=== PATIENT | female | born 1965 | race African-American/Black ===

== ENCOUNTER 2019-03-12 16:09 | Emergency (ER) | payer MEDICARE, MEDICAID ==
[~2019-03-12] VITALS: Ht 165.1 cm; Wt 95.0 kg
[~2019-03-12 16:09] MED LIST: CLOB20TA; KEPP500; LAM2
[2019-03-12] MEDS ORDERED: SODIUM CHLORIDE 0.9% 1,000 ML IV ONE (16:35)
[2019-03-12] MEDS ORDERED: LORAZEPAM 2MG/ML CPJ IV ONE (16:45)
[2019-03-12 17:23] LABS: BASOPHILS % 0.6 % (0.0-2.0); EOSINOPHILS % 2.6 % (0.0-5.0); HEMATOCRIT. 37.9 % (36.0-48.0); HEMOGLOBIN. 12.7 g/dL (12.0-16.0); LYMPHOCYTES % 27.5 % (20.0-50.0); MEAN CORPUSCULAR HEMOGLOBIN 31.1 pg (28.0-32.0); MEAN CORPUSCULAR VOLUME 92.9 fL (81.0-99.0); MEAN PLATELET VOLUME 10.4 fl (7.4-10.4); MONOCYTES % 7.1 % (2.0-8.0); NEUTROPHILS % 62.2 % (40.0-76.0); PLATELET 229 x1000/uL (130-400); RED BLOOD CELL COUNT 4.08 mill/uL (4.2-5.4); RED CELL DISTRIBUTION WIDTH 14.1 % (11.6-14.6)
[2019-03-12 17:28] LABS: CHLORIDE 111 mEq/L (98-107)
[2019-03-12 18:40] LABS: PLATELET ESTIMATE NORMAL
[2019-03-12 18:55] VITALS: BP 117/91
== END 2019-03-12 19:00 | disposition home or self-care (01) ==
LOC: ER 16:09
DX: G40.909 Epilepsy, unspecified, not intractable, without status epilepticus (principal); Z79.899 Other long term (current) drug therapy
CPT/HCPCS: 36415; 80053; 85025; 96374; 99283; J2060; J7030

== ENCOUNTER 2019-05-21 02:33 | Inpatient (IN) | payer MEDICARE, MEDICAID ==
[2019-05-21] VITALS (22 sets, daily range): BP systolic 127–153; BP diastolic 76–95
[~2019-05-21] VITALS: Ht 172.7 cm; Wt 107.5 kg
[2019-05-21] MEDS ORDERED: SODIUM CHLORIDE 0.9% 1,000 ML IV ONE (04:05)
[2019-05-21] MEDS ORDERED: LORAZEPAM 2MG/ML CPJ ONE ×2 (04:10→16:01)
[2019-05-21 04:22] LABS: BASOPHILS % 0.6 % (0.0-2.0); CHLORIDE 106 mEq/L (98-107); EOSINOPHILS % 0.4 % (0.0-5.0); HEMATOCRIT. 39.5 % (36.0-48.0); HEMOGLOBIN. 13.3 g/dL (12.0-16.0); MEAN CORPUSCULAR HEMOGLOBIN 31.1 pg (28.0-32.0); MEAN CORPUSCULAR VOLUME 91.9 fL (81.0-99.0); PLATELET 197 x1000/uL (130-400); RED CELL DISTRIBUTION WIDTH 14.1 % (11.6-14.6)
[2019-05-21 04:28] LABS: ETHANOL BLOOD < 10 mg/dL
[2019-05-21] MEDS ORDERED: LEVETIRACETAM 1000MG/100ML 100 ML IV ONE (04:30)
[2019-05-21] MEDS ORDERED: LAMO100T65 PO (04:56)
[2019-05-21] MEDS ORDERED: BRIV100T PO (04:56)
[2019-05-21 06:51] LABS: CLARITY URINE CLEAR (CLEAR); COLOR URINE YELLOW (YELLOW); KETONES URINE TRACE (NEGATIVE); LEUKOCYTE ESTERASE URINE NEGATIVE (NEGATIVE); NITRITE URINE NEGATIVE (NEGATIVE); OCCULT BLOOD URINE TRACE (NEGATIVE); PH URINE 5.5 (4.5-8.0); PROTEIN URINE NEGATIVE (NEGATIVE); SPECIFIC GRAVITY URINE 1.023 (1.005-1.030); UROBILINOGEN URINE 0.2 E.U./dL (0.2-1.0)
[2019-05-21 07:12] LABS: *AMPHETAMINES SCREEN URINE NEGATIVE (NEGATIVE); *BARBITURATES SCREEN URINE NEGATIVE (NEGATIVE)
[2019-05-21 07:13] LABS: *BENZODIAZEPINES SCREEN URINE PRESUMTIVE POSITIVE (NEGATIVE); *COCAINE SCREEN URINE NEGATIVE (NEGATIVE); CANNABINOID URINE SCREEN NEGATIVE (NEGATIVE); METHADONE URINE SCREEN NEGATIVE (NEGATIVE); OPIATES URINE SCREEN NEGATIVE (NEGATIVE); PHENCYCLIDINE URINE SCREEN NEGATIVE (NEGATIVE)
[2019-05-21] MEDS ORDERED: LORAZEPAM 2MG/ML CPJ IV ONE ×3 (10:30→16:00)
[2019-05-21] MEDS ORDERED: ONDANSETRON HCL 4MG/2ML INJ IV PRN (11:30)
[2019-05-21] MEDS ORDERED: NA PHOS,M-B/NA PHOS,DI-BA ENEMA 118ML PR PRN (11:30)
[2019-05-21] MEDS ORDERED: HYDROCODONE/ACETAMINOPHEN 5/325MG TABLET PO PRN (11:30)
[2019-05-21] MEDS ORDERED: GUAIFENESIN 200MG/10ML SUGAR FREE UDC PO PRN (11:30)
[2019-05-21] MEDS ORDERED: MAGNESIUM/ALUMINUM HYDROXIDE/SIMETHICONE 30ML UDC PO PRN (11:30)
[2019-05-21] MEDS ORDERED: LORAZEPAM 0.5MG TABLET PO PRN (11:30)
[2019-05-21] MEDS ORDERED: CLONIDINE 0.1MG TABLET PO PRN (11:30)
[2019-05-21] MEDS ORDERED: DOCUSATE SODIUM 100MG CAPSULE PO PRN (11:30)
[2019-05-21] MEDS ORDERED: ACETAMINOPHEN 650MG SUPP PR PRN (11:30)
[2019-05-21] MEDS: DEXT 5%/0.45% NACL 1000ML 1,000 ML IV SCH (12:03)
[2019-05-21 12:18] LABS: BG CARBOXYHEMOGLOBIN 0.3 % (0.5-1.5); BG DEOXYHEMOGLOBIN 0.7 % (0.0-5.0); BG FRACTION INSPIRED OXYGEN 99; BG HCO3 ACT 17.7 mmol/L (22.0-26.0); BG METHEMOGLOBIN 0.2 % (0.0-1.5); BG OXYGEN SATURATION 99.3 % (92.0-98.5); BG OXYHEMOGLOBIN 98.8 % (94.0-97.0); BG PCO2 37.2 mmHg (35.0-45.0); BG PH 7.296 (7.350-7.450); BG PO2 291.8 mmHg (75.0-100.0); BG SAMPLE SITE RIGHT RADIAL; BG TOTAL HEMOGLOBIN 12.7 g/dL (12.0-18.0); BG VENT MODE MASK - NRB
[2019-05-21 12:27] LABS: INR 1.1; PROTHROMBIN TIME 11.1 sec (9.6-11.0)
[2019-05-21] MEDS ORDERED: PHENYTOIN SODIUM 100MG/2ML VIAL IV NR (15:15)
[2019-05-21] MEDS ORDERED: LEVETIRACETAM 500MG PREMIX 100 ML IV NR (15:15)
[2019-05-21] MEDS ORDERED: LAMOTRIGINE 100MG TABLET PO SCH (15:15)
[2019-05-21] MEDS ORDERED: ETOMIDATE 2MG/ML 10ML VIAL IV ONE ×2 (16:00→16:03)
[2019-05-21] MEDS ORDERED: MIDAZOLAM HCL 50 MG in DEXTROSE 5% WATER 40 ML IV ONE ×2 (16:00→16:15)
[2019-05-21] MEDS ORDERED: MIDAZOLAM HCL 2 MG/2 ML VIAL IV ONE (16:00)
[2019-05-21] MEDS ORDERED: VECURONIUM BROMIDE 10 MG/VIAL IV ONE ×2 (16:00→16:03)
[2019-05-21] MEDS ORDERED: SODIUM CHLORIDE 0.9% 10ML VIAL ONE (16:03)
[2019-05-21 17:18] LABS: BG BASE EXCESS -3.9 mmol/L (-2.0-2.0); BG CARBOXYHEMOGLOBIN 0.3 % (0.5-1.5); BG DEOXYHEMOGLOBIN 0.7 % (0.0-5.0); BG FRACTION INSPIRED OXYGEN 100; BG HCO3 ACT 22.1 mmol/L (22.0-26.0); BG METHEMOGLOBIN 0.4 % (0.0-1.5); BG OXYGEN SATURATION 99.3 % (92.0-98.5); BG OXYHEMOGLOBIN 98.6 % (94.0-97.0); BG PCO2 43.9 mmHg (35.0-45.0); BG PO2 245.9 mmHg (75.0-100.0); BG SAMPLE SITE RIGHT BRACHIAL; BG TIDAL VOLUME(mL) 500 mL; BG TOTAL HEMOGLOBIN 13.2 g/dL (12.0-18.0); BG VENT MODE VENT - A/C; BG VENT RATE 12 set
[2019-05-21] MEDS ORDERED: MIDAZOLAM HCL 100 MG in DEXT 5% WATER 80 ML IV PRN (18:15)
[2019-05-21] MEDS: PROPOFOL 10MG/ML 100ML 100 ML IV PRN ×2 (18:33→21:49)
[2019-05-21 18:39] LABS: CREATINE KINASE 226 IU/L (26-192)
[2019-05-21 18:41] LABS: CREATINE KINASE MB FRACTION 1.1 ng/mL (0.5-3.6)
[2019-05-21] MEDS ORDERED: PANTOPRAZOLE SODIUM 40 MG/VIAL IV NR (20:30)
[2019-05-21] MEDS: PIPERACILLIN/TAZOBACTAM 3.375 G in DEXT 5% WATER 100 ML IV SCH (20:35)
[2019-05-21] MEDS: LAMOTRIGINE 100MG TABLET PO SCH (20:35)
[2019-05-21] MEDS ORDERED: LEVETIRACETAM 500 MG in SODIUM CHLORIDE 0.9% 100 ML IV SCH (21:00)
[2019-05-21 21:30] LABS: BG BASE EXCESS -1.4 mmol/L (-2.0-2.0); BG CARBOXYHEMOGLOBIN 0.1 % (0.5-1.5); BG DEOXYHEMOGLOBIN 1.1 % (0.0-5.0); BG FRACTION INSPIRED OXYGEN 50; BG METHEMOGLOBIN 0.5 % (0.0-1.5); BG OXYGEN SATURATION 98.9 % (92.0-98.5); BG OXYHEMOGLOBIN 98.3 % (94.0-97.0); BG PCO2 25.2 mmHg (35.0-45.0); BG PH 7.518 (7.350-7.450); BG SAMPLE SITE RIGHT RADIAL; BG TIDAL VOLUME(mL) 500 mL; BG VENT MODE VENT - A/C; BG VENT RATE 16 set
[2019-05-21] MEDS: LEVETIRACETAM 1,000 MG in SODIUM CHLORIDE 0.9% 100 ML IV SCH (21:50)
[2019-05-21] MEDS: PHENYTOIN SODIUM 100MG/2ML VIAL IV SCH (21:54)
[2019-05-21 23:32] LABS: CREATINE KINASE 229 IU/L (26-192)
[2019-05-21 23:33] LABS: CREATINE KINASE MB FRACTION 1.3 ng/mL (0.5-3.6)
[2019-05-22] VITALS (96 sets, daily range): BP systolic 96–183; BP diastolic 33–93
[2019-05-22] MEDS: PIPERACILLIN/TAZOBACTAM 3.375 G in DEXT 5% WATER 100 ML IV SCH ×4 (02:34→21:26)
[2019-05-22] MEDS: DEXT 5%/0.45% NACL 1000ML 1,000 ML IV SCH ×2 (02:49→14:46)
[2019-05-22] MEDS: PHENYTOIN SODIUM 100MG/2ML VIAL IV SCH ×2 (05:02→14:45)
[2019-05-22 05:21] LABS: BASOPHILS % 0.6 % (0.0-2.0); EOSINOPHILS % 1.4 % (0.0-5.0); HEMOGLOBIN. 12.2 g/dL (12.0-16.0); LYMPHOCYTES % 32.7 % (20.0-50.0); MEAN CORPUSCULAR HEMOGLOBIN 31.2 pg (28.0-32.0); MEAN CORPUSCULAR VOLUME 91.7 fL (81.0-99.0); MEAN PLATELET VOLUME 10.3 fl (7.4-10.4); MONOCYTES % 8.6 % (2.0-8.0); NEUTROPHILS % 56.7 % (40.0-76.0); PLATELET 167 x1000/uL (130-400); RED BLOOD CELL COUNT 3.93 mill/uL (4.2-5.4); RED CELL DISTRIBUTION WIDTH 13.8 % (11.6-14.6)
[2019-05-22 05:35] LABS: CHLORIDE 109 mEq/L (98-107)
[2019-05-22 05:43] LABS: LDL CHOLESTEROL 91 mg/dL (5-100)
[2019-05-22 05:45] LABS: HDL CHOLESTEROL 47 mg/dL (40-59); T4 FREE 1.26 ng/dL (0.76-1.46)
[2019-05-22] MEDS: PROPOFOL 10MG/ML 100ML 100 ML IV PRN ×3 (06:17→15:05)
[2019-05-22] MEDS ORDERED: LIDOCAINE HCL 1% 20ML VIAL (Pyxis) INJ ONE (08:01)
[2019-05-22] MEDS: LAMOTRIGINE 100MG TABLET PO SCH ×2 (08:49→18:54)
[2019-05-22] MEDS: PANTOPRAZOLE SODIUM 40 MG/VIAL IV SCH (08:49)
[2019-05-22] MEDS: LEVETIRACETAM 1,000 MG in SODIUM CHLORIDE 0.9% 100 ML IV SCH (08:49)
[2019-05-22] MEDS: IPRATROPIUM/ALBUTEROL 0.5-3(2.5)MG/3ML NEB NEB PRN (09:05)
[2019-05-22] MEDS: LORAZEPAM 2MG/ML CPJ IV PRN (15:04)
[2019-05-22] MEDS ORDERED: PHENYTOIN SODIUM 500 MG in SODIUM CHLORIDE 0.9% 50 ML IV SCH (20:00)
[2019-05-22] MEDS: LEVETIRACETAM 1,500 MG in SODIUM CHLORIDE 0.9% 100 ML IV SCH (21:26)
[2019-05-22] MEDS ORDERED: POTASSIUM CHLORIDE 20MEQ/PACKET PO NR (22:00)
[2019-05-22] MEDS: [UNRECOGNIZED DRUG - REMARK] PO SCH (22:12)
[2019-05-22] MEDS: [UNRECOGNIZED DRUG - REMARK] PO SCH (22:12)
[2019-05-23] VITALS (54 sets, daily range): BP systolic 78–151; BP diastolic 39–82
[2019-05-23] MEDS: PROPOFOL 10MG/ML 100ML 100 ML IV PRN ×4 (00:57→23:42)
[2019-05-23] MEDS: DEXT 5%/0.45% NACL 1000ML 1,000 ML IV SCH ×2 (03:39→16:37)
[2019-05-23] MEDS: PIPERACILLIN/TAZOBACTAM 3.375 G in DEXT 5% WATER 100 ML IV SCH ×4 (03:39→20:22)
[2019-05-23 05:21] LABS: BASOPHILS % 0.4 % (0.0-2.0); EOSINOPHILS % 4.2 % (0.0-5.0); HEMATOCRIT. 35.7 % (36.0-48.0); HEMOGLOBIN. 12.4 g/dL (12.0-16.0); LYMPHOCYTES % 31.1 % (20.0-50.0); MEAN CORPUSCULAR HEMOGLOBIN 31.8 pg (28.0-32.0); MEAN CORPUSCULAR VOLUME 91.8 fL (81.0-99.0); MEAN PLATELET VOLUME 10.2 fl (7.4-10.4); MONOCYTES % 8.2 % (2.0-8.0); NEUTROPHILS % 56.1 % (40.0-76.0); PLATELET 149 x1000/uL (130-400); RED BLOOD CELL COUNT 3.89 mill/uL (4.2-5.4); RED CELL DISTRIBUTION WIDTH 13.6 % (11.6-14.6)
[2019-05-23 05:23] LABS: CHLORIDE 108 mEq/L (98-107)
[2019-05-23] MEDS: PANTOPRAZOLE SODIUM 40 MG/VIAL IV SCH (08:00)
[2019-05-23] MEDS: [UNRECOGNIZED DRUG - REMARK] PO SCH ×2 (08:01→21:43)
[2019-05-23] MEDS: [UNRECOGNIZED DRUG - REMARK] PO SCH ×2 (08:01→21:42)
[2019-05-23] MEDS: PHENYTOIN SODIUM 100MG/2ML VIAL IV SCH ×2 (08:01→16:37)
[2019-05-23] MEDS: LAMOTRIGINE 100MG TABLET PO SCH ×2 (08:02→16:38)
[2019-05-23] MEDS: IPRATROPIUM/ALBUTEROL 0.5-3(2.5)MG/3ML NEB NEB PRN (08:33)
[2019-05-23] MEDS: LEVETIRACETAM 1,500 MG in SODIUM CHLORIDE 0.9% 100 ML IV SCH ×3 (09:00→21:43)
[2019-05-23 11:43] LABS: BG BASE EXCESS -0.3 mmol/L (-2.0-2.0); BG CARBOXYHEMOGLOBIN 0.3 % (0.5-1.5); BG DEOXYHEMOGLOBIN 1.1 % (0.0-5.0); BG FRACTION INSPIRED OXYGEN 40; BG HCO3 ACT 23.1 mmol/L (22.0-26.0); BG METHEMOGLOBIN 0.3 % (0.0-1.5); BG OXYGEN SATURATION 98.9 % (92.0-98.5); BG OXYHEMOGLOBIN 98.3 % (94.0-97.0); BG PO2 152.5 mmHg (75.0-100.0); BG SAMPLE SITE RIGHT RADIAL; BG TIDAL VOLUME(mL) 400 mL; BG TOTAL HEMOGLOBIN 13.2 g/dL (12.0-18.0); BG VENT MODE VENT - A/C; BG VENT RATE 16 set
[2019-05-23] MEDS ORDERED: POTASSIUM CHLORIDE INJ 40 MEQ in DEXT 5% WATER 250 ML IV NR (16:00)
[2019-05-23] MEDS ORDERED: NOREPINEPHRINE 4 MG in DEXT 5% WATER 246 ML IV PRN (18:00)
[2019-05-24] VITALS (47 sets, daily range): BP systolic 90–173; BP diastolic 42–81
[2019-05-24] MEDS: PIPERACILLIN/TAZOBACTAM 3.375 G in DEXT 5% WATER 100 ML IV SCH ×4 (03:19→20:34)
[2019-05-24] MEDS: PROPOFOL 10MG/ML 100ML 100 ML IV PRN ×4 (04:57→20:21)
[2019-05-24] MEDS: DEXT 5%/0.45% NACL 1000ML 1,000 ML IV SCH ×2 (04:58→18:03)
[2019-05-24 07:18] LABS: HEMATOCRIT 33.8 % (36.0-48.0); HEMOGLOBIN 11.2 g/dL (12.0-16.0); MEAN CORPUSCULAR HEMOGLOBIN 30.7 pg (28.0-32.0); MEAN CORPUSCULAR VOLUME 92.7 fL (81.0-99.0); PLATELET 140 x1000/uL (130-400); RED BLOOD CELL COUNT 3.64 mill/uL (4.2-5.4); RED CELL DISTRIBUTION WIDTH 13.7 % (11.6-14.6)
[2019-05-24] MEDS: PHENYTOIN SODIUM 100MG/2ML VIAL IV SCH ×2 (08:49→17:57)
[2019-05-24] MEDS: [UNRECOGNIZED DRUG - REMARK] PO SCH ×2 (08:49→22:29)
[2019-05-24] MEDS: PANTOPRAZOLE SODIUM 40 MG/VIAL IV SCH (08:49)
[2019-05-24] MEDS: LAMOTRIGINE 100MG TABLET PO SCH ×2 (08:49→17:58)
[2019-05-24] MEDS: LEVETIRACETAM 1,500 MG in SODIUM CHLORIDE 0.9% 100 ML IV SCH ×2 (08:49→21:01)
[2019-05-24] MEDS: [UNRECOGNIZED DRUG - REMARK] PO SCH ×2 (08:49→22:28)
[2019-05-24 09:02] LABS: CHLORIDE 112 mEq/L (98-107)
[2019-05-24 09:33] LABS: BG BASE EXCESS -1.7 mmol/L (-2.0-2.0); BG CARBOXYHEMOGLOBIN 0.3 % (0.5-1.5); BG DEOXYHEMOGLOBIN 1.3 % (0.0-5.0); BG FRACTION INSPIRED OXYGEN 40; BG HCO3 ACT 22.4 mmol/L (22.0-26.0); BG METHEMOGLOBIN 0.3 % (0.0-1.5); BG OXYGEN SATURATION 98.7 % (92.0-98.5); BG OXYHEMOGLOBIN 98.1 % (94.0-97.0); BG PCO2 35.7 mmHg (35.0-45.0); BG PH 7.415 (7.350-7.450); BG PO2 141.7 mmHg (75.0-100.0); BG SAMPLE SITE LEFT BRACHIAL; BG TIDAL VOLUME(mL) 400 mL; BG TOTAL HEMOGLOBIN 12.6 g/dL (12.0-18.0); BG VENT MODE VENT - A/C; BG VENT RATE 16 set
[2019-05-24] MEDS ORDERED: POTASSIUM CHLORIDE 20MEQ/PACKET PO NR ×2 (10:45→14:00)
[2019-05-24] MEDS ORDERED: PHENYTOIN 100 MG/4 ML UDC NG NR ×2 (14:30→18:00)
[2019-05-24] MEDS: LAMOTRIGINE 25MG TABLET PO SCH (17:57)
[2019-05-25] VITALS (89 sets, daily range): BP systolic 61–176; BP diastolic 27–118
[2019-05-25] MEDS: PIPERACILLIN/TAZOBACTAM 3.375 G in DEXT 5% WATER 100 ML IV SCH ×4 (02:48→22:07)
[2019-05-25] MEDS: PROPOFOL 10MG/ML 100ML 100 ML IV PRN ×2 (02:50→10:16)
[2019-05-25 04:52] LABS: BASOPHILS % 0.3 % (0.0-2.0); EOSINOPHILS % 5.9 % (0.0-5.0); HEMATOCRIT. 34.7 % (36.0-48.0); HEMOGLOBIN. 11.5 g/dL (12.0-16.0); LYMPHOCYTES % 28.6 % (20.0-50.0); MEAN CORPUSCULAR HEMOGLOBIN 30.8 pg (28.0-32.0); MEAN CORPUSCULAR VOLUME 92.7 fL (81.0-99.0); MEAN PLATELET VOLUME 10.4 fl (7.4-10.4); MONOCYTES % 8.6 % (2.0-8.0); NEUTROPHILS % 56.6 % (40.0-76.0); PLATELET 152 x1000/uL (130-400); RED BLOOD CELL COUNT 3.74 mill/uL (4.2-5.4); RED CELL DISTRIBUTION WIDTH 14.1 % (11.6-14.6)
[2019-05-25 05:06] LABS: CHLORIDE 112 mEq/L (98-107)
[2019-05-25 05:12] LABS: PHOSPHORUS 3.1 mg/dL (2.5-4.9)
[2019-05-25] MEDS: [UNRECOGNIZED DRUG - REMARK] PO SCH ×2 (08:51→22:08)
[2019-05-25] MEDS: [UNRECOGNIZED DRUG - REMARK] PO SCH ×2 (08:51→22:08)
[2019-05-25] MEDS: LAMOTRIGINE 25MG TABLET PO SCH ×2 (08:51→16:41)
[2019-05-25] MEDS: PHENYTOIN SODIUM 100MG/2ML VIAL IV SCH ×2 (08:52→16:41)
[2019-05-25] MEDS: LAMOTRIGINE 100MG TABLET PO SCH ×2 (08:52→16:41)
[2019-05-25] MEDS: PANTOPRAZOLE SODIUM 40 MG/VIAL IV SCH (08:52)
[2019-05-25] MEDS: LEVETIRACETAM 1,500 MG in SODIUM CHLORIDE 0.9% 100 ML IV SCH ×2 (08:52→22:06)
[2019-05-25 09:06] LABS: BG BASE EXCESS -2.8 mmol/L (-2.0-2.0); BG CARBOXYHEMOGLOBIN 0.3 % (0.5-1.5); BG DEOXYHEMOGLOBIN 1.5 % (0.0-5.0); BG FRACTION INSPIRED OXYGEN 40; BG HCO3 ACT 21.5 mmol/L (22.0-26.0); BG METHEMOGLOBIN 0.3 % (0.0-1.5); BG OXYGEN SATURATION 98.5 % (92.0-98.5); BG OXYHEMOGLOBIN 97.9 % (94.0-97.0); BG PCO2 35.7 mmHg (35.0-45.0); BG PH 7.398 (7.350-7.450); BG PO2 138.8 mmHg (75.0-100.0); BG SAMPLE SITE RIGHT RADIAL; BG TIDAL VOLUME(mL) 400 mL; BG TOTAL HEMOGLOBIN 12.3 g/dL (12.0-18.0); BG VENT MODE VENT - A/C; BG VENT RATE 16 set
[2019-05-25] MEDS: DEXT 5%/0.45% NACL 1000ML 1,000 ML IV SCH ×2 (09:21→23:50)
[2019-05-25] MEDS ORDERED: POTASSIUM CHLORIDE 20MEQ/PACKET NG NR (11:15)
[2019-05-25] MEDS: LORAZEPAM 2MG/ML CPJ IV PRN ×2 (13:03→22:08)
[2019-05-25] MEDS: ZONISAMIDE 100MG CAPSULE PO SCH (15:50)
[2019-05-25] MEDS: DIPHENHYDRAMINE 50MG/ML VIAL IV PRN (22:07)
[2019-05-26] VITALS (64 sets, daily range): BP systolic 70–153; BP diastolic 35–88
[2019-05-26] MEDS ORDERED: PROPOFOL 10MG/ML 100ML 100 ML IV PRN
[2019-05-26] MEDS: PIPERACILLIN/TAZOBACTAM 3.375 G in DEXT 5% WATER 100 ML IV SCH ×4 (03:45→22:02)
[2019-05-26 04:52] LABS: HEMATOCRIT. 32.8 % (36.0-48.0); HEMOGLOBIN. 11.1 g/dL (12.0-16.0); MEAN CORPUSCULAR HEMOGLOBIN 31.7 pg (28.0-32.0); MEAN CORPUSCULAR VOLUME 93.5 fL (81.0-99.0); RED BLOOD CELL COUNT 3.51 mill/uL (4.2-5.4); RED CELL DISTRIBUTION WIDTH 14.4 % (11.6-14.6)
[2019-05-26 05:03] LABS: CHLORIDE 112 mEq/L (98-107)
[2019-05-26] MEDS: [UNRECOGNIZED DRUG - REMARK] PO SCH ×2 (08:48→22:03)
[2019-05-26] MEDS: [UNRECOGNIZED DRUG - REMARK] PO SCH ×2 (08:48→22:03)
[2019-05-26] MEDS: ZONISAMIDE 100MG CAPSULE PO SCH (08:50)
[2019-05-26] MEDS: PANTOPRAZOLE SODIUM 40 MG/VIAL IV SCH (08:51)
[2019-05-26] MEDS: LAMOTRIGINE 100MG TABLET PO SCH ×2 (08:51→16:42)
[2019-05-26] MEDS: LAMOTRIGINE 25MG TABLET PO SCH ×2 (08:51→16:41)
[2019-05-26] MEDS: LEVETIRACETAM 1,500 MG in SODIUM CHLORIDE 0.9% 100 ML IV SCH ×2 (08:51→22:02)
[2019-05-26] MEDS: PHENYTOIN SODIUM 100MG/2ML VIAL IV SCH ×2 (09:17→16:41)
[2019-05-26 10:58] LABS: PLATELET ESTIMATE NORMAL
[2019-05-26 10:59] LABS: MEAN PLATELET VOLUME 10.7 fl (7.4-10.4); PLATELET 161 x1000/uL (130-400)
[2019-05-26 15:33] LABS: BG BASE EXCESS -0.1 mmol/L (-2.0-2.0); BG CARBOXYHEMOGLOBIN 0.3 % (0.5-1.5); BG DEOXYHEMOGLOBIN 1.7 % (0.0-5.0); BG FRACTION INSPIRED OXYGEN 40; BG HCO3 ACT 25.3 mmol/L (22.0-26.0); BG METHEMOGLOBIN 0.2 % (0.0-1.5); BG OXYGEN SATURATION 98.3 % (92.0-98.5); BG OXYHEMOGLOBIN 97.8 % (94.0-97.0); BG PCO2 44.2 mmHg (35.0-45.0); BG PH 7.376 (7.350-7.450); BG PO2 127.2 mmHg (75.0-100.0); BG PRESSURE SUPPORT 10; BG SAMPLE SITE RIGHT RADIAL; BG TOTAL HEMOGLOBIN 12.6 g/dL (12.0-18.0); BG VENT MODE VENT - CPAP
[2019-05-26 18:18] LABS: BG BASE EXCESS -1.4 mmol/L (-2.0-2.0); BG CARBOXYHEMOGLOBIN 0.1 % (0.5-1.5); BG DEOXYHEMOGLOBIN 2.5 % (0.0-5.0); BG FRACTION INSPIRED OXYGEN 40; BG HCO3 ACT 23.7 mmol/L (22.0-26.0); BG METHEMOGLOBIN 0.3 % (0.0-1.5); BG OXYGEN SATURATION 97.5 % (92.0-98.5); BG OXYHEMOGLOBIN 97.1 % (94.0-97.0); BG PCO2 41.6 mmHg (35.0-45.0); BG PH 7.374 (7.350-7.450); BG PO2 105.2 mmHg (75.0-100.0); BG PRESSURE SUPPORT 5; BG SAMPLE SITE RIGHT RADIAL; BG VENT MODE VENT - CPAP
[2019-05-26] MEDS: DIPHENHYDRAMINE 50MG/ML VIAL IV PRN (22:03)
[2019-05-27] VITALS (73 sets, daily range): BP systolic 74–143; BP diastolic 31–91
[2019-05-27] MEDS: PIPERACILLIN/TAZOBACTAM 3.375 G in DEXT 5% WATER 100 ML IV SCH ×4 (03:59→21:59)
[2019-05-27] MEDS ORDERED: NOREPINEPHRINE 4 MG in DEXT 5% WATER 246 ML IV PRN (04:00)
[2019-05-27 05:13] LABS: BASOPHILS % 0.4 % (0.0-2.0); EOSINOPHILS % 4.7 % (0.0-5.0); HEMATOCRIT. 33.8 % (36.0-48.0); HEMOGLOBIN. 11.2 g/dL (12.0-16.0); LYMPHOCYTES % 39.1 % (20.0-50.0); MEAN CORPUSCULAR VOLUME 93.7 fL (81.0-99.0); MEAN PLATELET VOLUME 10.3 fl (7.4-10.4); NEUTROPHILS % 46.8 % (40.0-76.0); PLATELET 207 x1000/uL (130-400); RED BLOOD CELL COUNT 3.61 mill/uL (4.2-5.4); RED CELL DISTRIBUTION WIDTH 14.4 % (11.6-14.6)
[2019-05-27 05:18] LABS: CHLORIDE 111 mEq/L (98-107)
[2019-05-27] MEDS: DEXT 5%/0.45% NACL 1000ML 1,000 ML IV SCH (06:31)
[2019-05-27] MEDS: MIDAZOLAM HCL 2 MG/2 ML VIAL IV PRN ×6 (07:35→22:00)
[2019-05-27 09:00] LABS: BG BASE EXCESS -1.2 mmol/L (-2.0-2.0); BG CARBOXYHEMOGLOBIN 0.3 % (0.5-1.5); BG DEOXYHEMOGLOBIN 2.6 % (0.0-5.0); BG FRACTION INSPIRED OXYGEN 40; BG HCO3 ACT 23.8 mmol/L (22.0-26.0); BG METHEMOGLOBIN 0.1 % (0.0-1.5); BG OXYGEN SATURATION 97.4 % (92.0-98.5); BG PCO2 40.8 mmHg (35.0-45.0); BG PH 7.384 (7.350-7.450); BG PO2 103.7 mmHg (75.0-100.0); BG SAMPLE SITE RIGHT BRACHIAL; BG TIDAL VOLUME(mL) 400 mL; BG TOTAL HEMOGLOBIN 11.9 g/dL (12.0-18.0); BG VENT MODE VENT - A/C; BG VENT RATE 16 set
[2019-05-27] MEDS: LEVETIRACETAM 1,500 MG in SODIUM CHLORIDE 0.9% 100 ML IV SCH ×2 (09:02→21:58)
[2019-05-27] MEDS: PHENYTOIN SODIUM 100MG/2ML VIAL IV SCH ×2 (09:11→17:04)
[2019-05-27] MEDS: PANTOPRAZOLE SODIUM 40 MG/VIAL IV SCH (09:11)
[2019-05-27] MEDS: [UNRECOGNIZED DRUG - REMARK] PO SCH ×2 (09:11→22:04)
[2019-05-27] MEDS: [UNRECOGNIZED DRUG - REMARK] PO SCH ×2 (09:11→22:04)
[2019-05-27] MEDS: LAMOTRIGINE 100MG TABLET PO SCH ×2 (09:12→17:05)
[2019-05-27] MEDS: ZONISAMIDE 100MG CAPSULE PO SCH (09:12)
[2019-05-27] MEDS: LAMOTRIGINE 25MG TABLET PO SCH ×2 (09:12→17:05)
[2019-05-27] MEDS: DIPHENHYDRAMINE 50MG/ML VIAL IV PRN (13:25)
[2019-05-28] VITALS (49 sets, daily range): BP systolic 49–150; BP diastolic 17–99
[2019-05-28] MEDS: PIPERACILLIN/TAZOBACTAM 3.375 G in DEXT 5% WATER 100 ML IV SCH ×4 (02:34→21:24)
[2019-05-28 04:57] LABS: CHLORIDE 109 mEq/L (98-107)
[2019-05-28] MEDS: MIDAZOLAM HCL 2 MG/2 ML VIAL IV PRN ×4 (07:21→21:23)
[2019-05-28] MEDS: DIPHENHYDRAMINE 50MG/ML VIAL IV PRN ×2 (07:43→17:00)
[2019-05-28] MEDS: ZONISAMIDE 100MG CAPSULE PO SCH (09:34)
[2019-05-28] MEDS: PANTOPRAZOLE SODIUM 40 MG/VIAL IV SCH (09:34)
[2019-05-28] MEDS: LAMOTRIGINE 25MG TABLET PO SCH ×2 (09:34→17:56)
[2019-05-28] MEDS: LAMOTRIGINE 100MG TABLET PO SCH ×2 (09:34→17:56)
[2019-05-28] MEDS: PHENYTOIN SODIUM 100MG/2ML VIAL IV SCH ×2 (09:34→17:56)
[2019-05-28] MEDS: [UNRECOGNIZED DRUG - REMARK] PO SCH ×2 (09:35→21:22)
[2019-05-28] MEDS: LEVETIRACETAM 1,500 MG in SODIUM CHLORIDE 0.9% 100 ML IV SCH ×2 (09:35→21:22)
[2019-05-28] MEDS: [UNRECOGNIZED DRUG - REMARK] PO SCH ×2 (09:36→21:21)
[2019-05-28 10:18] LABS: BG BASE EXCESS 0.1 mmol/L (-2.0-2.0); BG CARBOXYHEMOGLOBIN 0.3 % (0.5-1.5); BG DEOXYHEMOGLOBIN 2.4 % (0.0-5.0); BG FRACTION INSPIRED OXYGEN 40; BG HCO3 ACT 24.7 mmol/L (22.0-26.0); BG METHEMOGLOBIN 0.1 % (0.0-1.5); BG OXYGEN SATURATION 97.6 % (92.0-98.5); BG OXYHEMOGLOBIN 97.2 % (94.0-97.0); BG PCO2 39.6 mmHg (35.0-45.0); BG PH 7.412 (7.350-7.450); BG PO2 104.4 mmHg (75.0-100.0); BG SAMPLE SITE RIGHT RADIAL; BG TIDAL VOLUME(mL) 400 mL; BG TOTAL HEMOGLOBIN 10.7 g/dL (12.0-18.0); BG VENT MODE VENT - A/C; BG VENT RATE 16 set
[2019-05-28] MEDS: DEXT 5%/0.45% NACL 1000ML 1,000 ML IV SCH ×2 (10:57→11:58)
[2019-05-28] MEDS ORDERED: MORPHINE SULFATE 2 MG/ML CPJ (NOT FOR IM USE) IV NR (11:45)
[2019-05-28 11:58] LABS: BASOPHILS % 0.6 % (0.0-2.0); EOSINOPHILS % 6.2 % (0.0-5.0); HEMATOCRIT. 31.8 % (36.0-48.0); HEMOGLOBIN. 10.7 g/dL (12.0-16.0); LYMPHOCYTES % 15.8 % (20.0-50.0); MEAN CORPUSCULAR HEMOGLOBIN 31.2 pg (28.0-32.0); MEAN CORPUSCULAR VOLUME 92.9 fL (81.0-99.0); MEAN PLATELET VOLUME 10.1 fl (7.4-10.4); MONOCYTES % 8.2 % (2.0-8.0); NEUTROPHILS % 69.2 % (40.0-76.0); PLATELET 175 x1000/uL (130-400); RED BLOOD CELL COUNT 3.42 mill/uL (4.2-5.4); RED CELL DISTRIBUTION WIDTH 13.7 % (11.6-14.6)
[2019-05-28] MEDS: ACETAMINOPHEN 325MG TABLET PO PRN (21:23)
[2019-05-29] VITALS (62 sets, daily range): BP systolic 77–178; BP diastolic 32–106
[2019-05-29 06:26] LABS: CHLORIDE 109 mEq/L (98-107)
[2019-05-29 06:41] LABS: BASOPHILS % 0.4 % (0.0-2.0); EOSINOPHILS % 5.5 % (0.0-5.0); HEMATOCRIT. 32.2 % (36.0-48.0); HEMOGLOBIN. 10.8 g/dL (12.0-16.0); LYMPHOCYTES % 24.6 % (20.0-50.0); MEAN CORPUSCULAR HEMOGLOBIN 30.9 pg (28.0-32.0); MEAN CORPUSCULAR VOLUME 92.4 fL (81.0-99.0); MEAN PLATELET VOLUME 10.6 fl (7.4-10.4); MONOCYTES % 10.1 % (2.0-8.0); NEUTROPHILS % 59.4 % (40.0-76.0); PLATELET 173 x1000/uL (130-400); RED BLOOD CELL COUNT 3.48 mill/uL (4.2-5.4); RED CELL DISTRIBUTION WIDTH 13.7 % (11.6-14.6)
[2019-05-29] MEDS: LEVETIRACETAM 1,500 MG in SODIUM CHLORIDE 0.9% 100 ML IV SCH ×2 (09:46→21:56)
[2019-05-29] MEDS: ZONISAMIDE 100MG CAPSULE PO SCH (09:46)
[2019-05-29] MEDS: [UNRECOGNIZED DRUG - REMARK] PO SCH ×2 (09:46→21:56)
[2019-05-29] MEDS: PHENYTOIN SODIUM 100MG/2ML VIAL IV SCH ×2 (09:46→17:09)
[2019-05-29] MEDS: [UNRECOGNIZED DRUG - REMARK] PO SCH ×2 (09:46→21:56)
[2019-05-29] MEDS: PANTOPRAZOLE SODIUM 40 MG/VIAL IV SCH (09:46)
[2019-05-29] MEDS: LAMOTRIGINE 25MG TABLET PO SCH ×2 (09:46→17:08)
[2019-05-29] MEDS: LAMOTRIGINE 100MG TABLET PO SCH ×2 (09:47→17:09)
[2019-05-29] MEDS: DEXT 5%/0.45% NACL 1000ML 1,000 ML IV SCH (11:43)
[2019-05-29] MEDS: IPRATROPIUM/ALBUTEROL 0.5-3(2.5)MG/3ML NEB NEB PRN (16:18)
[2019-05-29 16:31] LABS: BG BASE EXCESS -1.6 mmol/L (-2.0-2.0); BG CARBOXYHEMOGLOBIN 0.1 % (0.5-1.5); BG DEOXYHEMOGLOBIN 3.1 % (0.0-5.0); BG FRACTION INSPIRED OXYGEN 40; BG HCO3 ACT 23.7 mmol/L (22.0-26.0); BG METHEMOGLOBIN 0.2 % (0.0-1.5); BG OXYGEN SATURATION 96.9 % (92.0-98.5); BG OXYHEMOGLOBIN 96.6 % (94.0-97.0); BG PCO2 42.3 mmHg (35.0-45.0); BG PH 7.367 (7.350-7.450); BG PO2 94.2 mmHg (75.0-100.0); BG PRESSURE SUPPORT 10; BG SAMPLE SITE RIGHT RADIAL; BG VENT MODE VENT - CPAP
[2019-05-29] MEDS ORDERED: METHYLPREDNISOLONE SOD SUCC 40 MG/ML VIAL IV NR (18:59)
[2019-05-29] MEDS ORDERED: RACEPINEPHRINE 2.25% 0.5ML NEB VIAL HHN NR (19:00)
[2019-05-29 21:47] LABS: BG BASE EXCESS -4.2 mmol/L (-2.0-2.0); BG CARBOXYHEMOGLOBIN 0.1 % (0.5-1.5); BG DEOXYHEMOGLOBIN 1.3 % (0.0-5.0); BG FRACTION INSPIRED OXYGEN 98; BG HCO3 ACT 21.1 mmol/L (22.0-26.0); BG METHEMOGLOBIN 0.4 % (0.0-1.5); BG OXYGEN SATURATION 98.7 % (92.0-98.5); BG OXYHEMOGLOBIN 98.2 % (94.0-97.0); BG PCO2 39.4 mmHg (35.0-45.0); BG PH 7.347 (7.350-7.450); BG PO2 143.8 mmHg (75.0-100.0); BG SAMPLE SITE RIGHT RADIAL; BG TOTAL HEMOGLOBIN 12.3 g/dL (12.0-18.0); BG VENT MODE MASK - AEROSOL
[2019-05-30] VITALS (46 sets, daily range): BP systolic 82–135; BP diastolic 29–100
[2019-05-30 05:57] LABS: CHLORIDE 113 mEq/L (98-107)
[2019-05-30 08:40] LABS: BG BASE EXCESS -2.9 mmol/L (-2.0-2.0); BG CARBOXYHEMOGLOBIN 0.3 % (0.5-1.5); BG DEOXYHEMOGLOBIN 1.7 % (0.0-5.0); BG FRACTION INSPIRED OXYGEN 40; BG METHEMOGLOBIN 0.3 % (0.0-1.5); BG OXYGEN SATURATION 98.3 % (92.0-98.5); BG OXYHEMOGLOBIN 97.7 % (94.0-97.0); BG PCO2 44.8 mmHg (35.0-45.0); BG PH 7.329 (7.350-7.450); BG PO2 132.5 mmHg (75.0-100.0); BG SAMPLE SITE RIGHT RADIAL; BG TOTAL HEMOGLOBIN 12.2 g/dL (12.0-18.0); BG VENT MODE MASK - AEROSOL
[2019-05-30] MEDS: [UNRECOGNIZED DRUG - REMARK] PO SCH ×2 (09:08→22:27)
[2019-05-30] MEDS: LAMOTRIGINE 25MG TABLET PO SCH ×2 (09:08→16:56)
[2019-05-30] MEDS: PANTOPRAZOLE SODIUM 40 MG/VIAL IV SCH (09:08)
[2019-05-30] MEDS: ZONISAMIDE 100MG CAPSULE PO SCH (09:08)
[2019-05-30] MEDS: LAMOTRIGINE 100MG TABLET PO SCH ×2 (09:08→16:56)
[2019-05-30] MEDS: [UNRECOGNIZED DRUG - REMARK] PO SCH ×2 (09:08→22:27)
[2019-05-30] MEDS: PHENYTOIN SODIUM 100MG/2ML VIAL IV SCH ×2 (09:08→16:56)
[2019-05-30] MEDS: LEVETIRACETAM 1,500 MG in SODIUM CHLORIDE 0.9% 100 ML IV SCH (09:53)
[2019-05-30] MEDS: DEXT 5%/0.45% NACL 1000ML 1,000 ML IV SCH (11:09)
[2019-05-30 13:16] LABS: HEMATOCRIT. 37.2 % (36.0-48.0); HEMOGLOBIN. 12.3 g/dL (12.0-16.0); MEAN CORPUSCULAR HEMOGLOBIN 30.9 pg (28.0-32.0); MEAN CORPUSCULAR VOLUME 93.7 fL (81.0-99.0); RED BLOOD CELL COUNT 3.97 mill/uL (4.2-5.4); RED CELL DISTRIBUTION WIDTH 13.8 % (11.6-14.6)
[2019-05-30 14:25] LABS: PLATELET ESTIMATE NORMAL
[2019-05-30 14:27] LABS: MEAN PLATELET VOLUME 10.5 fl (7.4-10.4); PLATELET 194 x1000/uL (130-400)
[2019-05-30] MEDS: METHYLPREDNISOLONE SOD SUCC 40 MG/ML VIAL IV SCH (22:27)
[2019-05-31] VITALS (12 sets, daily range): BP systolic 116–147; BP diastolic 60–78
[2019-05-31] MEDS: METHYLPREDNISOLONE SOD SUCC 40 MG/ML VIAL IV SCH ×3 (05:23→21:19)
[2019-05-31 06:17] LABS: BASOPHILS % 0.4 % (0.0-2.0); EOSINOPHILS % 0.9 % (0.0-5.0); HEMATOCRIT. 33.5 % (36.0-48.0); HEMOGLOBIN. 11.2 g/dL (12.0-16.0); LYMPHOCYTES % 18.2 % (20.0-50.0); MEAN CORPUSCULAR HEMOGLOBIN 30.9 pg (28.0-32.0); MEAN CORPUSCULAR VOLUME 92.6 fL (81.0-99.0); MEAN PLATELET VOLUME 9.9 fl (7.4-10.4); NEUTROPHILS % 72.5 % (40.0-76.0); PLATELET 239 x1000/uL (130-400); RED BLOOD CELL COUNT 3.61 mill/uL (4.2-5.4); RED CELL DISTRIBUTION WIDTH 13.6 % (11.6-14.6)
[2019-05-31 06:46] LABS: CHLORIDE 108 mEq/L (98-107)
[2019-05-31] MEDS: ZONISAMIDE 100MG CAPSULE PO SCH (08:50)
[2019-05-31] MEDS: PHENYTOIN SODIUM 100MG/2ML VIAL IV SCH (08:50)
[2019-05-31] MEDS: PANTOPRAZOLE SODIUM 40 MG/VIAL IV SCH (08:50)
[2019-05-31] MEDS: LAMOTRIGINE 100MG TABLET PO SCH ×2 (08:50→18:02)
[2019-05-31] MEDS: LAMOTRIGINE 25MG TABLET PO SCH ×2 (08:50→18:02)
[2019-05-31] MEDS: LEVETIRACETAM 1,500 MG in SODIUM CHLORIDE 0.9% 100 ML IV SCH ×4 (08:51→21:18)
[2019-05-31] MEDS: [UNRECOGNIZED DRUG - REMARK] PO SCH ×3 (09:00→21:19)
[2019-05-31] MEDS: [UNRECOGNIZED DRUG - REMARK] PO SCH ×3 (09:00→21:19)
[2019-05-31] MEDS: DEXT 5%/0.45% NACL 1000ML 1,000 ML IV SCH (10:38)
[2019-05-31 14:24] LABS: BG BASE EXCESS -1.4 mmol/L (-2.0-2.0); BG CARBOXYHEMOGLOBIN 0.4 % (0.5-1.5); BG DEOXYHEMOGLOBIN 4.7 % (0.0-5.0); BG FRACTION INSPIRED OXYGEN 21; BG HCO3 ACT 23.5 mmol/L (22.0-26.0); BG OXYGEN SATURATION 95.3 % (92.0-98.5); BG OXYHEMOGLOBIN 94.9 % (94.0-97.0); BG PCO2 40.1 mmHg (35.0-45.0); BG PH 7.386 (7.350-7.450); BG PO2 77.8 mmHg (75.0-100.0); BG SAMPLE SITE RIGHT RADIAL; BG TOTAL HEMOGLOBIN 11.9 g/dL (12.0-18.0); BG VENT MODE ROOM AIR
[2019-06-01] VITALS (12 sets, daily range): BP systolic 104–144; BP diastolic 56–81
[2019-06-01 07:59] LABS: BASOPHILS % 0.3 % (0.0-2.0); EOSINOPHILS % 0.2 % (0.0-5.0); HEMATOCRIT. 35.1 % (36.0-48.0); HEMOGLOBIN. 12.2 g/dL (12.0-16.0); LYMPHOCYTES % 23.3 % (20.0-50.0); MEAN CORPUSCULAR HEMOGLOBIN 32.1 pg (28.0-32.0); MEAN CORPUSCULAR VOLUME 92.3 fL (81.0-99.0); MEAN PLATELET VOLUME 9.6 fl (7.4-10.4); NEUTROPHILS % 65.2 % (40.0-76.0); PLATELET 237 x1000/uL (130-400); RED CELL DISTRIBUTION WIDTH 13.7 % (11.6-14.6)
[2019-06-01 08:29] LABS: CHLORIDE 107 mEq/L (98-107)
[2019-06-01] MEDS: [UNRECOGNIZED DRUG - REMARK] PO SCH ×2 (09:22→22:06)
[2019-06-01] MEDS: LEVETIRACETAM 1,500 MG in SODIUM CHLORIDE 0.9% 100 ML IV SCH ×2 (09:22→22:06)
[2019-06-01] MEDS: PANTOPRAZOLE SODIUM 40 MG/VIAL IV SCH (09:22)
[2019-06-01] MEDS: LAMOTRIGINE 100MG TABLET PO SCH ×2 (09:23→17:36)
[2019-06-01] MEDS: LAMOTRIGINE 25MG TABLET PO SCH ×2 (09:23→17:36)
[2019-06-01] MEDS: ZONISAMIDE 100MG CAPSULE PO SCH (09:23)
[2019-06-01] MEDS: [UNRECOGNIZED DRUG - REMARK] PO SCH ×2 (09:29→22:06)
[2019-06-01] MEDS: METHYLPREDNISOLONE SOD SUCC 40 MG/ML VIAL IV SCH ×2 (09:43→22:06)
[2019-06-01] MEDS: DEXT 5%/0.45% NACL 1000ML 1,000 ML IV SCH (15:39)
[2019-06-01] MEDS: DIPHENHYDRAMINE 50MG/ML VIAL IV PRN (22:36)
[2019-06-02] VITALS (11 sets, daily range): BP systolic 100–137; BP diastolic 53–83
[2019-06-02] MEDS: DIPHENHYDRAMINE 50MG/ML VIAL IV PRN (02:03)
[2019-06-02] MEDS: ACETAMINOPHEN 325MG TABLET PO PRN (04:12)
[2019-06-02 06:53] LABS: BASOPHILS % 0.3 % (0.0-2.0); EOSINOPHILS % 0.2 % (0.0-5.0); HEMATOCRIT. 33.1 % (36.0-48.0); HEMOGLOBIN. 10.9 g/dL (12.0-16.0); LYMPHOCYTES % 18.8 % (20.0-50.0); MEAN PLATELET VOLUME 9.4 fl (7.4-10.4); MONOCYTES % 8.3 % (2.0-8.0); NEUTROPHILS % 72.4 % (40.0-76.0); PLATELET 246 x1000/uL (130-400); RED BLOOD CELL COUNT 3.53 mill/uL (4.2-5.4); RED CELL DISTRIBUTION WIDTH 14.2 % (11.6-14.6)
[2019-06-02 07:05] LABS: CHLORIDE 108 mEq/L (98-107)
[2019-06-02] MEDS: LAMOTRIGINE 25MG TABLET PO SCH ×2 (10:10→18:58)
[2019-06-02] MEDS: METHYLPREDNISOLONE SOD SUCC 40 MG/ML VIAL IV SCH (10:10)
[2019-06-02] MEDS: [UNRECOGNIZED DRUG - REMARK] PO SCH (10:10)
[2019-06-02] MEDS: PANTOPRAZOLE SODIUM 40 MG/VIAL IV SCH (10:10)
[2019-06-02] MEDS: LEVETIRACETAM 1,500 MG in SODIUM CHLORIDE 0.9% 100 ML IV SCH (10:10)
[2019-06-02] MEDS: [UNRECOGNIZED DRUG - REMARK] PO SCH (10:10)
[2019-06-02] MEDS: ZONISAMIDE 100MG CAPSULE PO SCH (10:11)
[2019-06-02] MEDS: LAMOTRIGINE 100MG TABLET PO SCH ×2 (10:11→18:58)
[2019-06-02] MEDS: DEXT 5%/0.45% NACL 1000ML 1,000 ML IV SCH (10:57)
== END 2019-06-02 21:29 | DRG 207 ==
LOC: ER 02:33 → MICUSO 05:56 → EDBEDREQTM 06:00 → EDBEDREQ 06:00 → SUPCPDRO 11:22 → EDBEDREQSVC 11:37 → EDBEDREQ 11:37 → ENRESERV 15:33 → 5EST 05-30 19:50
PROVIDERS: ADMIT Internal Medicine; ATTEND Internal Medicine
PROC: 5A1955Z Respiratory Ventilation, Greater than 96 Consecutive Hours (ICD-10-PCS; principal; 2019-05-21)
PROC: 0BH17EZ Insertion of Endotracheal Airway into Trachea, Via Natural or Artificial Opening (ICD-10-PCS; 2019-05-21)
PROC: 05HY33Z Insertion of Infusion Device into Upper Vein, Percutaneous Approach (ICD-10-PCS; 2019-05-22)
PROC: B54NZZA Ultrasonography of Left Upper Extremity Veins, Guidance (ICD-10-PCS; 2019-05-22)
PROC: 4A00X4Z Measurement of Central Nervous Electrical Activity, External Approach (ICD-10-PCS; 2019-05-23)
DX: J96.00 Acute respiratory failure, unspecified whether with hypoxia or hypercapnia (principal); I50.33 Acute on chronic diastolic (congestive) heart failure; J69.0 Pneumonitis due to inhalation of food and vomit; E87.2 Acidosis; E87.0 Hyperosmolality and hypernatremia; G40.911 Epilepsy, unspecified, intractable, with status epilepticus; G93.1 Anoxic brain damage, not elsewhere classified; R58 Hemorrhage, not elsewhere classified; R00.0 Tachycardia, unspecified; E87.6 Hypokalemia; F79 Unspecified intellectual disabilities; Z78.1 Physical restraint status; Z79.899 Other long term (current) drug therapy
CPT/HCPCS: 31500; 36415; 36600; 70486; 71045; 72170; 76937; 80048; 80061; 80185; 80305; 80320; 81003; 82140; 82375; 82550; 82553; 82805; 82962; 83735; 84100; 84132; 84439; 84443; 84478; 84484; 85027; 87070; 92610; 93306; 93970; 94002; 94003; 94640; 97163; 99291; A6261; C1725; C9113; J1165; J1200; J1953; J2060; J2250; J2270; J2543; J2704; J2920; J3480; J3490; J7030; J7040; J7042; J7050; J7060; J7620; A4315; G0480

== ENCOUNTER 2020-01-04 12:37 | Inpatient (IN) | payer MEDICARE, MEDICAID ==
[~2020-01-04] VITALS: Ht 167.6 cm; Wt 92.5 kg
[~2020-01-04 12:37] MED LIST changes: +BRIV100T PO; -CLOB20TA; +CLOB20TA PO; -KEPP500; -LAM2; +LAMO100T65 PO
[2020-01-04] MEDS ORDERED: LEVETIRACETAM 500MG PREMIX 100 ML IV ONE ×2 (13:15→18:00)
[2020-01-04 14:12] LABS: BASOPHILS % 0.6 % (0.0-2.0); EOSINOPHILS % 1.2 % (0.0-5.0); HEMATOCRIT. 37.6 % (36.0-48.0); HEMOGLOBIN. 12.6 g/dL (12.0-16.0); LYMPHOCYTES % 27.9 % (20.0-50.0); MEAN CORPUSCULAR HEMOGLOBIN 30.7 pg (28.0-32.0); MEAN CORPUSCULAR VOLUME 91.7 fL (81.0-99.0); MEAN PLATELET VOLUME 10.5 fl (7.4-10.4); MONOCYTES % 8.5 % (2.0-8.0); NEUTROPHILS % 61.8 % (40.0-76.0); PLATELET 183 x1000/uL (130-400); RED CELL DISTRIBUTION WIDTH 14.1 % (11.6-14.6)
[2020-01-04 14:18] LABS: CHLORIDE 108 mEq/L (98-107)
[2020-01-04 14:22] LABS: ETHANOL BLOOD < 10 mg/dL
[2020-01-04 16:46] LABS: CLARITY URINE CLEAR (CLEAR); COLOR URINE YELLOW (YELLOW); KETONES URINE NEGATIVE (NEGATIVE); LEUKOCYTE ESTERASE URINE 2+ (NEGATIVE); NITRITE URINE NEGATIVE (NEGATIVE); OCCULT BLOOD URINE NEGATIVE (NEGATIVE); PROTEIN URINE NEGATIVE (NEGATIVE); SPECIFIC GRAVITY URINE 1.015 (1.005-1.030); UROBILINOGEN URINE 0.2 E.U./dL (0.2-1.0)
[2020-01-04 17:00] LABS: *AMPHETAMINES SCREEN URINE NEGATIVE (NEGATIVE); *BARBITURATES SCREEN URINE NEGATIVE (NEGATIVE); *BENZODIAZEPINES SCREEN URINE PRESUMTIVE POSITIVE (NEGATIVE); *COCAINE SCREEN URINE NEGATIVE (NEGATIVE); METHADONE URINE SCREEN NEGATIVE (NEGATIVE); OPIATES URINE SCREEN NEGATIVE (NEGATIVE)
[2020-01-04 17:01] LABS: CANNABINOID URINE SCREEN NEGATIVE (NEGATIVE); PHENCYCLIDINE URINE SCREEN NEGATIVE (NEGATIVE)
[2020-01-04] MEDS ORDERED: LORAZEPAM 2MG/ML CPJ IV ONE (18:00)
[2020-01-05] VITALS (25 sets, daily range): BP systolic 118–182; BP diastolic 72–94
[2020-01-05 07:45] LABS: BASOPHILS % 0.3 % (0.0-2.0); CHLORIDE 108 mEq/L (98-107); EOSINOPHILS % 0.9 % (0.0-5.0); HEMATOCRIT. 36.9 % (36.0-48.0); HEMOGLOBIN. 12.3 g/dL (12.0-16.0); LYMPHOCYTES % 28.1 % (20.0-50.0); MEAN CORPUSCULAR HEMOGLOBIN 30.3 pg (28.0-32.0); MEAN CORPUSCULAR VOLUME 90.7 fL (81.0-99.0); MEAN PLATELET VOLUME 10.4 fl (7.4-10.4); MONOCYTES % 7.9 % (2.0-8.0); NEUTROPHILS % 62.8 % (40.0-76.0); PLATELET 179 x1000/uL (130-400); RED BLOOD CELL COUNT 4.06 mill/uL (4.2-5.4); RED CELL DISTRIBUTION WIDTH 13.7 % (11.6-14.6)
[2020-01-05] MEDS ORDERED: ENOXAPARIN 40MG/0.4ML SYR SUBCUT SCH (09:00)
[2020-01-05] MEDS ORDERED: CLOBAZAM 30 MG PO SCH (09:00)
[2020-01-05] MEDS ORDERED: BRIVARACETAM 100 MG PO SCH (09:00)
[2020-01-05] MEDS ORDERED: LEVETIRACETAM 500MG TABLET PO SCH (09:00)
[2020-01-05] MEDS ORDERED: LEVETIRACETAM 500 MG in SODIUM CHLORIDE 0.9% 100 ML IV SCH (09:45)
[2020-01-05] MEDS ORDERED: LORAZEPAM 2MG/ML CPJ IV PRN (09:45)
[2020-01-05] MEDS: ENOXAPARIN 30MG/0.3ML SYR SUBCUT SCH ×2 (10:07→21:02)
[2020-01-05] MEDS ORDERED: LEVETIRACETAM 500MG PREMIX 100 ML IV NR ×2 (12:00→16:00)
[2020-01-05 12:37] LABS: BG BASE EXCESS -1.2 mmol/L (-2.0-2.0); BG CARBOXYHEMOGLOBIN 0.3 % (0.5-1.5); BG DEOXYHEMOGLOBIN 3.4 % (0.0-5.0); BG FRACTION INSPIRED OXYGEN 28; BG METHEMOGLOBIN 0.3 % (0.0-1.5); BG OXYGEN SATURATION 96.6 % (92.0-98.5); BG PCO2 41.8 mmHg (35.0-45.0); BG PH 7.376 (7.350-7.450); BG PO2 92.5 mmHg (75.0-100.0); BG SAMPLE SITE RIGHT RADIAL; BG TOTAL HEMOGLOBIN 13.4 g/dL (12.0-18.0); BG VENT MODE NASAL CANNULA
[2020-01-05] MEDS ORDERED: PHENYTOIN SODIUM 500 MG in SODIUM CHLORIDE 0.9% 50 ML IV NR (14:00)
[2020-01-05] MEDS ORDERED: LEVETIRACETAM 750 MG in SODIUM CHLORIDE 0.9% 100 ML IV NR (14:00)
[2020-01-05] MEDS: PIPERACILLIN/TAZOBACTAM 3.375 G in DEXT 5% WATER 100 ML IV SCH ×2 (14:00→20:49)
[2020-01-05] MEDS ORDERED: LIDOCAINE HCL 1% 20ML VIAL (Pyxis) INJ ONE (14:13)
[2020-01-05] MEDS ORDERED: SODIUM BICARBONATE 4% (2.4MEQ) 5ML VIAL IV ONE (14:13)
[2020-01-05] MEDS ORDERED: LEVETIRACETAM 500 MG in SODIUM CHLORIDE 0.9% 100 ML IV ONE (14:30)
[2020-01-05] MEDS ORDERED: PHENYTOIN SODIUM 100MG/2ML VIAL IV NR (14:30)
[2020-01-05] MEDS ORDERED: SUCCINYLCHOLINE CHLORIDE 200MG/10ML IV ONE (14:50)
[2020-01-05] MEDS ORDERED: ETOMIDATE 2MG/ML 10ML VIAL IV ONE (14:50)
[2020-01-05 15:43] LABS: BG BASE EXCESS -0.3 mmol/L (-2.0-2.0); BG CARBOXYHEMOGLOBIN 0.3 % (0.5-1.5); BG DEOXYHEMOGLOBIN 1.9 % (0.0-5.0); BG FRACTION INSPIRED OXYGEN 40; BG HCO3 ACT 22.6 mmol/L (22.0-26.0); BG METHEMOGLOBIN 0.3 % (0.0-1.5); BG OXYGEN SATURATION 98.1 % (92.0-98.5); BG OXYHEMOGLOBIN 97.5 % (94.0-97.0); BG PCO2 31.8 mmHg (35.0-45.0); BG PH 7.469 (7.350-7.450); BG PO2 110.2 mmHg (75.0-100.0); BG SAMPLE SITE RIGHT RADIAL; BG TIDAL VOLUME(mL) 500 mL; BG TOTAL HEMOGLOBIN 13.6 g/dL (12.0-18.0); BG VENT MODE VENT - A/C; BG VENT RATE 14 set
[2020-01-05] MEDS ORDERED: BISACODYL 10MG SUPP PR PRN (16:00)
[2020-01-05] MEDS ORDERED: ACETAMINOPHEN 650MG SUPP PR PRN (16:00)
[2020-01-05] MEDS ORDERED: MORPHINE SULFATE 2 MG/ML CPJ (NOT FOR IM USE) IV PRN (16:00)
[2020-01-05 16:15] LABS: CREATINE KINASE 141 IU/L (26-192); CREATINE KINASE MB FRACTION < 1.0 ng/mL (0.5-3.6)
[2020-01-05] MEDS: PROPOFOL 10MG/ML 100ML 100 ML IV PRN (16:34)
[2020-01-05] MEDS: DEXT 5%/0.45% NACL 1000ML 1,000 ML IV SCH (16:45)
[2020-01-05] MEDS: PHENYTOIN SODIUM 100MG/2ML VIAL IV SCH ×2 (16:53→22:00)
[2020-01-05] MEDS: ACETAMINOPHEN 325MG TABLET PO PRN (18:20)
[2020-01-05] MEDS: LEVETIRACETAM 1,000 MG in SODIUM CHLORIDE 0.9% 100 ML IV SCH (20:49)
[2020-01-05 20:50] LABS: HCG SCREEN NEGATIVE
[2020-01-05] MEDS ORDERED: LEVETIRACETAM 750 MG in SODIUM CHLORIDE 0.9% 100 ML IV SCH (21:00)
[2020-01-05] MEDS ORDERED: LACTULOSE 20G/30ML UDC PO PRN (21:00)
[2020-01-05] MEDS ORDERED: LEVETIRACETAM 500MG PREMIX 100 ML IV SCH (21:00)
[2020-01-05] MEDS: FAMOTIDINE 20MG TABLET PO SCH (21:02)
[2020-01-06] VITALS (52 sets, daily range): BP systolic 102–148; BP diastolic 58–91
[2020-01-06] MEDS: PIPERACILLIN/TAZOBACTAM 3.375 G in DEXT 5% WATER 100 ML IV SCH ×4 (02:00→20:24)
[2020-01-06 05:37] LABS: BASOPHILS % 0.4 % (0.0-2.0); HEMATOCRIT. 36.7 % (36.0-48.0); HEMOGLOBIN. 12.5 g/dL (12.0-16.0); LYMPHOCYTES % 33.6 % (20.0-50.0); MEAN CORPUSCULAR HEMOGLOBIN 30.6 pg (28.0-32.0); MEAN CORPUSCULAR VOLUME 90.1 fL (81.0-99.0); MEAN PLATELET VOLUME 10.7 fl (7.4-10.4); MONOCYTES % 10.1 % (2.0-8.0); NEUTROPHILS % 54.9 % (40.0-76.0); PLATELET 173 x1000/uL (130-400); RED BLOOD CELL COUNT 4.07 mill/uL (4.2-5.4); RED CELL DISTRIBUTION WIDTH 13.7 % (11.6-14.6)
[2020-01-06] MEDS: PHENYTOIN SODIUM 100MG/2ML VIAL IV SCH ×2 (05:43→13:13)
[2020-01-06 05:46] LABS: CHLORIDE 109 mEq/L (98-107)
[2020-01-06] MEDS: PROPOFOL 10MG/ML 100ML 100 ML IV PRN ×2 (06:15→13:12)
[2020-01-06] MEDS: DEXT 5%/0.45% NACL 1000ML 1,000 ML IV SCH ×2 (07:30→18:55)
[2020-01-06] MEDS ORDERED: POTASSIUM CHLORIDE 20MEQ TABLET SR PO SCH (08:00)
[2020-01-06] MEDS: IPRATROPIUM/ALBUTEROL 0.5-3(2.5)MG/3ML NEB HHN PRN ×2 (08:21→15:55)
[2020-01-06] MEDS: LEVETIRACETAM 1,000 MG in SODIUM CHLORIDE 0.9% 100 ML IV SCH ×2 (08:47→20:24)
[2020-01-06] MEDS: ENOXAPARIN 30MG/0.3ML SYR SUBCUT SCH ×2 (08:48→20:24)
[2020-01-06] MEDS ORDERED: POTASSIUM CHLORIDE INJ 40 MEQ in DEXT 5% WATER 250 ML IV SCH (09:00)
[2020-01-06 09:57] LABS: BG BASE EXCESS 0.1 mmol/L (-2.0-2.0); BG CARBOXYHEMOGLOBIN 0.2 % (0.5-1.5); BG DEOXYHEMOGLOBIN 0.9 % (0.0-5.0); BG FRACTION INSPIRED OXYGEN 40; BG METHEMOGLOBIN 0.3 % (0.0-1.5); BG OXYGEN SATURATION 99.1 % (92.0-98.5); BG OXYHEMOGLOBIN 98.6 % (94.0-97.0); BG PCO2 24.8 mmHg (35.0-45.0); BG PH 7.546 (7.350-7.450); BG PO2 152.1 mmHg (75.0-100.0); BG SAMPLE SITE RIGHT RADIAL; BG TIDAL VOLUME(mL) 500 mL; BG TOTAL HEMOGLOBIN 13.2 g/dL (12.0-18.0); BG VENT MODE VENT - A/C; BG VENT RATE 14 set
[2020-01-06] MEDS: FAMOTIDINE 20MG TABLET PO SCH (20:24)
[2020-01-07] VITALS (47 sets, daily range): BP systolic 65–168; BP diastolic 45–120
[2020-01-07] MEDS: PROPOFOL 10MG/ML 100ML 100 ML IV PRN ×3 (00:12→15:56)
[2020-01-07] MEDS: PIPERACILLIN/TAZOBACTAM 3.375 G in DEXT 5% WATER 100 ML IV SCH ×4 (02:22→21:02)
[2020-01-07] MEDS: DEXT 5%/0.45% NACL 1000ML 1,000 ML IV SCH ×2 (04:29→21:03)
[2020-01-07 05:48] LABS: BASOPHILS % 0.6 % (0.0-2.0); EOSINOPHILS % 3.6 % (0.0-5.0); HEMATOCRIT. 40.4 % (36.0-48.0); HEMOGLOBIN. 13.6 g/dL (12.0-16.0); LYMPHOCYTES % 25.9 % (20.0-50.0); MEAN CORPUSCULAR HEMOGLOBIN 30.6 pg (28.0-32.0); MEAN CORPUSCULAR VOLUME 90.9 fL (81.0-99.0); MEAN PLATELET VOLUME 10.3 fl (7.4-10.4); MONOCYTES % 11.8 % (2.0-8.0); NEUTROPHILS % 58.1 % (40.0-76.0); PLATELET 160 x1000/uL (130-400); RED BLOOD CELL COUNT 4.44 mill/uL (4.2-5.4); RED CELL DISTRIBUTION WIDTH 13.9 % (11.6-14.6)
[2020-01-07 05:54] LABS: CHLORIDE 111 mEq/L (98-107)
[2020-01-07] MEDS: ENOXAPARIN 30MG/0.3ML SYR SUBCUT SCH ×2 (08:16→21:03)
[2020-01-07] MEDS: LEVETIRACETAM 1,000 MG in SODIUM CHLORIDE 0.9% 100 ML IV SCH ×2 (08:16→21:01)
[2020-01-07] MEDS: PHENYTOIN SODIUM 100MG/2ML VIAL IV SCH ×2 (08:17→17:41)
[2020-01-07] MEDS ORDERED: POTASSIUM CHLORIDE 20MEQ/PACKET PO NR (12:15)
[2020-01-07] MEDS: FAMOTIDINE 20MG TABLET PO SCH (21:02)
[2020-01-08] VITALS (46 sets, daily range): BP systolic 95–157; BP diastolic 50–90
[2020-01-08] MEDS ORDERED: PROPOFOL 10MG/ML 100ML 100 ML IV PRN (01:15)
[2020-01-08] MEDS: PIPERACILLIN/TAZOBACTAM 3.375 G in DEXT 5% WATER 100 ML IV SCH ×4 (01:50→20:38)
[2020-01-08] MEDS: PROPOFOL 10MG/ML 100ML 100 ML IV PRN ×2 (03:19→08:32)
[2020-01-08 06:02] LABS: BASOPHILS % 0.4 % (0.0-2.0); EOSINOPHILS % 4.3 % (0.0-5.0); HEMATOCRIT. 41.3 % (36.0-48.0); HEMOGLOBIN. 13.7 g/dL (12.0-16.0); LYMPHOCYTES % 25.6 % (20.0-50.0); MEAN CORPUSCULAR HEMOGLOBIN 30.5 pg (28.0-32.0); MEAN CORPUSCULAR VOLUME 92.1 fL (81.0-99.0); MONOCYTES % 11.8 % (2.0-8.0); NEUTROPHILS % 57.9 % (40.0-76.0); RED BLOOD CELL COUNT 4.49 mill/uL (4.2-5.4)
[2020-01-08 06:05] LABS: CHLORIDE 111 mEq/L (98-107)
[2020-01-08] MEDS: PHENYTOIN SODIUM 100MG/2ML VIAL IV SCH ×2 (08:10→17:00)
[2020-01-08] MEDS: LEVETIRACETAM 1,000 MG in SODIUM CHLORIDE 0.9% 100 ML IV SCH ×2 (08:23→20:37)
[2020-01-08] MEDS: ENOXAPARIN 30MG/0.3ML SYR SUBCUT SCH ×2 (08:31→20:37)
[2020-01-08 10:32] LABS: PLATELET ESTIMATE NORMAL
[2020-01-08] MEDS: DEXT 5%/0.45% NACL 1000ML 1,000 ML IV SCH (10:40)
[2020-01-08 10:44] LABS: MEAN PLATELET VOLUME 10.9 fl (7.4-10.4); PLATELET 162 x1000/uL (130-400)
[2020-01-08 18:18] LABS: BG BASE EXCESS -2.4 mmol/L (-2.0-2.0); BG CARBOXYHEMOGLOBIN 0.3 % (0.5-1.5); BG FRACTION INSPIRED OXYGEN 40; BG HCO3 ACT 19.7 mmol/L (22.0-26.0); BG METHEMOGLOBIN 0.3 % (0.0-1.5); BG OXYHEMOGLOBIN 98.4 % (94.0-97.0); BG PCO2 26.3 mmHg (35.0-45.0); BG PH 7.493 (7.350-7.450); BG PO2 175.9 mmHg (75.0-100.0); BG PRESSURE SUPPORT 10; BG SAMPLE SITE RIGHT RADIAL; BG TOTAL HEMOGLOBIN 11.6 g/dL (12.0-18.0); BG VENT MODE VENT - CPAP
[2020-01-08] MEDS ORDERED: DOPAMINE 800MG PREMIX (DOUBLE) 250 ML IV ONE (20:26)
[2020-01-08] MEDS: FAMOTIDINE 20MG TABLET PO SCH (20:37)
[2020-01-09] VITALS (34 sets, daily range): BP systolic 115–193; BP diastolic 41–136
[2020-01-09] MEDS: LORAZEPAM 2MG/ML CPJ IV PRN ×2 (00:22→06:20)
[2020-01-09] MEDS: DEXT 5%/0.45% NACL 1000ML 1,000 ML IV SCH ×2 (02:30→12:55)
[2020-01-09] MEDS: PIPERACILLIN/TAZOBACTAM 3.375 G in DEXT 5% WATER 100 ML IV SCH ×4 (02:57→20:42)
[2020-01-09 07:07] LABS: CHLORIDE 111 mEq/L (98-107)
[2020-01-09 07:10] LABS: HEMATOCRIT 35.4 % (36.0-48.0); HEMOGLOBIN 12.1 g/dL (12.0-16.0); MEAN CORPUSCULAR HEMOGLOBIN 31.1 pg (28.0-32.0); MEAN CORPUSCULAR VOLUME 90.8 fL (81.0-99.0); PLATELET 170 x1000/uL (130-400); RED CELL DISTRIBUTION WIDTH 13.6 % (11.6-14.6)
[2020-01-09] MEDS: PHENYTOIN SODIUM 100MG/2ML VIAL IV SCH (09:00)
[2020-01-09] MEDS: ENOXAPARIN 30MG/0.3ML SYR SUBCUT SCH ×2 (09:00→21:16)
[2020-01-09 09:11] LABS: BG BASE EXCESS -1.1 mmol/L (-2.0-2.0); BG CARBOXYHEMOGLOBIN 0.4 % (0.5-1.5); BG DEOXYHEMOGLOBIN 2.6 % (0.0-5.0); BG FRACTION INSPIRED OXYGEN 30; BG HCO3 ACT 23.2 mmol/L (22.0-26.0); BG METHEMOGLOBIN 0.3 % (0.0-1.5); BG OXYGEN SATURATION 97.4 % (92.0-98.5); BG OXYHEMOGLOBIN 96.7 % (94.0-97.0); BG PCO2 37.4 mmHg (35.0-45.0); BG PH 7.411 (7.350-7.450); BG PRESSURE SUPPORT 8; BG SAMPLE SITE RIGHT RADIAL; BG TOTAL HEMOGLOBIN 12.5 g/dL (12.0-18.0); BG VENT MODE VENT - CPAP
[2020-01-09] MEDS: LEVETIRACETAM 1,000 MG in SODIUM CHLORIDE 0.9% 100 ML IV SCH ×2 (10:10→21:16)
[2020-01-09] MEDS ORDERED: POTASSIUM CHLORIDE INJ 40 MEQ in DEXT 5% WATER 250 ML IV SCH (13:00)
[2020-01-09] MEDS: DILTIAZEM HCL 30MG TABLET PO SCH ×2 (14:53→21:16)
[2020-01-09 17:54] LABS: BG BASE EXCESS -1.6 mmol/L (-2.0-2.0); BG CARBOXYHEMOGLOBIN 0.1 % (0.5-1.5); BG HCO3 ACT 24.2 mmol/L (22.0-26.0); BG METHEMOGLOBIN 0.2 % (0.0-1.5); BG OXYHEMOGLOBIN 96.7 % (94.0-97.0); BG PCO2 44.8 mmHg (35.0-45.0); BG PO2 96.1 mmHg (75.0-100.0); BG SAMPLE SITE RIGHT RADIAL; BG TOTAL HEMOGLOBIN 12.9 g/dL (12.0-18.0); BG VENT MODE MASK - AEROSOL
[2020-01-09] MEDS: IPRATROPIUM/ALBUTEROL 0.5-3(2.5)MG/3ML NEB HHN PRN (21:15)
[2020-01-09] MEDS: PHENYTOIN 100 MG/4 ML UDC NG SCH (21:16)
[2020-01-09] MEDS: FAMOTIDINE 20MG TABLET PO SCH (21:16)
[2020-01-10] VITALS (35 sets, daily range): BP systolic 104–158; BP diastolic 56–126
[2020-01-10] MEDS: IPRATROPIUM/ALBUTEROL 0.5-3(2.5)MG/3ML NEB HHN PRN ×5 (01:46→15:52)
[2020-01-10] MEDS: PIPERACILLIN/TAZOBACTAM 3.375 G in DEXT 5% WATER 100 ML IV SCH ×5 (03:00→21:20)
[2020-01-10] MEDS: DEXT 5%/0.45% NACL 1000ML 1,000 ML IV SCH ×2 (05:00→17:13)
[2020-01-10] MEDS: PHENYTOIN 100 MG/4 ML UDC NG SCH ×3 (06:08→21:39)
[2020-01-10] MEDS: DILTIAZEM HCL 30MG TABLET PO SCH ×3 (06:09→21:38)
[2020-01-10] MEDS: RACEPINEPHRINE 2.25% 0.5ML NEB VIAL HHN PRN ×3 (06:15→15:53)
[2020-01-10 06:41] LABS: CHLORIDE 106 mEq/L (98-107)
[2020-01-10] MEDS ORDERED: DEXAMETHASONE 4MG/ML 1ML VIAL IV ONE (07:15)
[2020-01-10 08:08] LABS: BASOPHILS % 0.2 % (0.0-2.0); EOSINOPHILS % 4.9 % (0.0-5.0); HEMATOCRIT. 34.3 % (36.0-48.0); HEMOGLOBIN. 11.5 g/dL (12.0-16.0); LYMPHOCYTES % 21.3 % (20.0-50.0); MEAN CORPUSCULAR HEMOGLOBIN 30.8 pg (28.0-32.0); MEAN CORPUSCULAR VOLUME 91.6 fL (81.0-99.0); MEAN PLATELET VOLUME 10.3 fl (7.4-10.4); MONOCYTES % 10.2 % (2.0-8.0); NEUTROPHILS % 63.4 % (40.0-76.0); PLATELET 174 x1000/uL (130-400); RED BLOOD CELL COUNT 3.74 mill/uL (4.2-5.4); RED CELL DISTRIBUTION WIDTH 13.5 % (11.6-14.6)
[2020-01-10] MEDS: ENOXAPARIN 30MG/0.3ML SYR SUBCUT SCH ×2 (09:54→21:22)
[2020-01-10] MEDS: LEVETIRACETAM 1,000 MG in SODIUM CHLORIDE 0.9% 100 ML IV SCH ×2 (09:54→21:20)
[2020-01-10] MEDS: ACETAMINOPHEN 325MG TABLET PO PRN (09:56)
[2020-01-10] MEDS: DEXAMETHASONE 4MG/ML 1ML VIAL IV SCH ×3 (12:53→23:52)
[2020-01-10] MEDS ORDERED: POTASSIUM CHLORIDE INJ 40 MEQ in DEXT 5% WATER 250 ML IV NR (13:00)
[2020-01-10] MEDS ORDERED: DEXTROSE 50% WATER 50ML SYRINGE IV PRN (13:45)
[2020-01-10 14:03] LABS: BG CARBOXYHEMOGLOBIN 0.3 % (0.5-1.5); BG DEOXYHEMOGLOBIN 1.4 % (0.0-5.0); BG FRACTION INSPIRED OXYGEN 40; BG HCO3 ACT 24.8 mmol/L (22.0-26.0); BG METHEMOGLOBIN 0.3 % (0.0-1.5); BG OXYGEN SATURATION 98.6 % (92.0-98.5); BG PCO2 45.6 mmHg (35.0-45.0); BG PH 7.353 (7.350-7.450); BG PO2 142.5 mmHg (75.0-100.0); BG SAMPLE SITE RIGHT RADIAL; BG TOTAL HEMOGLOBIN 11.8 g/dL (12.0-18.0); BG VENT MODE MASK - AEROSOL
[2020-01-10] MEDS: BLOOD SUGAR DIAGNOSTIC STRIP TEST SCH ×2 (17:16→21:22)
[2020-01-10] MEDS: INSULIN LISPRO 100 UNITS/ML SUBCUT SCH ×2 (17:42→21:00)
[2020-01-10] MEDS ORDERED: MAGNESIUM SULFATE 3 GM in DEXT 5% WATER 96 ML IV ONE (20:00)
[2020-01-10] MEDS ORDERED: DEXT 5%/0.9% NACL 1,000 ML IV SCH (20:09)
[2020-01-10] MEDS ORDERED: PHENYTOIN 100 MG/4 ML UDC NG NR (20:15)
[2020-01-10] MEDS: FAMOTIDINE 20MG TABLET PO SCH (21:22)
[2020-01-11] VITALS (33 sets, daily range): BP systolic 93–138; BP diastolic 23–89
[2020-01-11] MEDS: PHENYTOIN 100 MG/4 ML UDC NG SCH ×3 (06:43→21:16)
[2020-01-11] MEDS: DEXAMETHASONE 4MG/ML 1ML VIAL IV SCH ×3 (06:43→23:48)
[2020-01-11] MEDS: DILTIAZEM HCL 30MG TABLET PO SCH ×3 (06:44→21:16)
[2020-01-11 06:54] LABS: BASOPHILS % 0.1 % (0.0-2.0); HEMATOCRIT. 35.8 % (36.0-48.0); HEMOGLOBIN. 11.9 g/dL (12.0-16.0); LYMPHOCYTES % 7.6 % (20.0-50.0); MEAN CORPUSCULAR HEMOGLOBIN 30.4 pg (28.0-32.0); MEAN CORPUSCULAR VOLUME 91.4 fL (81.0-99.0); MEAN PLATELET VOLUME 10.6 fl (7.4-10.4); MONOCYTES % 4.2 % (2.0-8.0); NEUTROPHILS % 88.1 % (40.0-76.0); PLATELET 177 x1000/uL (130-400); RED BLOOD CELL COUNT 3.92 mill/uL (4.2-5.4); RED CELL DISTRIBUTION WIDTH 13.5 % (11.6-14.6)
[2020-01-11 06:59] LABS: CHLORIDE 107 mEq/L (98-107)
[2020-01-11 07:23] LABS: BG BASE EXCESS 0.6 mmol/L (-2.0-2.0); BG CARBOXYHEMOGLOBIN 0.3 % (0.5-1.5); BG DEOXYHEMOGLOBIN 1.3 % (0.0-5.0); BG FRACTION INSPIRED OXYGEN 35; BG HCO3 ACT 25.1 mmol/L (22.0-26.0); BG METHEMOGLOBIN 0.3 % (0.0-1.5); BG OXYGEN SATURATION 98.7 % (92.0-98.5); BG OXYHEMOGLOBIN 98.1 % (94.0-97.0); BG PCO2 40.1 mmHg (35.0-45.0); BG PH 7.415 (7.350-7.450); BG PO2 136.4 mmHg (75.0-100.0); BG SAMPLE SITE RIGHT BRACHIAL; BG TOTAL HEMOGLOBIN 12.1 g/dL (12.0-18.0); BG VENT MODE MASK - AEROSOL
[2020-01-11] MEDS: INSULIN LISPRO 100 UNITS/ML SUBCUT SCH ×4 (08:20→21:00)
[2020-01-11] MEDS: BLOOD SUGAR DIAGNOSTIC STRIP TEST SCH ×4 (08:33→21:24)
[2020-01-11] MEDS: ENOXAPARIN 30MG/0.3ML SYR SUBCUT SCH (08:34)
[2020-01-11] MEDS: LEVETIRACETAM 1,000 MG in SODIUM CHLORIDE 0.9% 100 ML IV SCH ×2 (09:00→21:16)
[2020-01-11] MEDS ORDERED: SUCCINYLCHOLINE CHLORIDE 200MG/10ML IV ONE (10:56)
[2020-01-11] MEDS ORDERED: PROPOFOL 200MG/20ML VIAL IV ONE (10:56)
[2020-01-11] MEDS ORDERED: MIDAZOLAM HCL 2 MG/2 ML VIAL ONE (10:56)
[2020-01-11] MEDS: IPRATROPIUM/ALBUTEROL 0.5-3(2.5)MG/3ML NEB HHN SCH (20:08)
[2020-01-11] MEDS: FAMOTIDINE 20MG TABLET PO SCH (21:16)
[2020-01-12] VITALS (14 sets, daily range): BP systolic 91–129; BP diastolic 56–78
[2020-01-12] MEDS: IPRATROPIUM/ALBUTEROL 0.5-3(2.5)MG/3ML NEB HHN SCH ×4 (02:20→20:47)
[2020-01-12] MEDS: DILTIAZEM HCL 30MG TABLET PO SCH ×3 (05:19→21:19)
[2020-01-12] MEDS: PHENYTOIN 100 MG/4 ML UDC NG SCH ×3 (05:22→21:19)
[2020-01-12] MEDS: BLOOD SUGAR DIAGNOSTIC STRIP TEST SCH ×2 (05:24→12:32)
[2020-01-12] MEDS: INSULIN LISPRO 100 UNITS/ML SUBCUT SCH ×2 (05:25→12:32)
[2020-01-12] MEDS: DEXAMETHASONE 4MG/ML 1ML VIAL IV SCH ×2 (12:35→23:54)
[2020-01-12] MEDS: LEVETIRACETAM 1,000 MG in SODIUM CHLORIDE 0.9% 100 ML IV SCH ×2 (12:35→21:19)
[2020-01-12] MEDS: ENOXAPARIN 100MG/ML SYR SUBCUT SCH (17:34)
[2020-01-12] MEDS ORDERED: LORAZEPAM 2MG/ML CPJ IV PRN (21:15)
[2020-01-12] MEDS: FAMOTIDINE 20MG TABLET PO SCH (21:19)
[2020-01-13] VITALS (12 sets, daily range): BP systolic 100–128; BP diastolic 51–74
[2020-01-13] MEDS: IPRATROPIUM/ALBUTEROL 0.5-3(2.5)MG/3ML NEB HHN SCH ×3 (01:11→20:47)
[2020-01-13] MEDS: DILTIAZEM HCL 30MG TABLET PO SCH ×3 (05:02→21:28)
[2020-01-13] MEDS: PHENYTOIN 100 MG/4 ML UDC NG SCH ×2 (05:02→13:31)
[2020-01-13] MEDS: ENOXAPARIN 100MG/ML SYR SUBCUT SCH ×2 (05:03→17:15)
[2020-01-13 06:46] LABS: HEMATOCRIT 34.8 % (36.0-48.0); HEMOGLOBIN 11.8 g/dL (12.0-16.0); MEAN CORPUSCULAR HEMOGLOBIN 30.9 pg (28.0-32.0); PLATELET 189 x1000/uL (130-400); RED BLOOD CELL COUNT 3.82 mill/uL (4.2-5.4); RED CELL DISTRIBUTION WIDTH 13.3 % (11.6-14.6)
[2020-01-13 06:57] LABS: CHLORIDE 106 mEq/L (98-107)
[2020-01-13] MEDS: LEVETIRACETAM 1,000 MG in SODIUM CHLORIDE 0.9% 100 ML IV SCH ×2 (09:17→21:27)
[2020-01-13] MEDS: DEXAMETHASONE 4MG/ML 1ML VIAL IV SCH (13:31)
[2020-01-13 14:49] LABS: BG BASE EXCESS 4.3 mmol/L (-2.0-2.0); BG CARBOXYHEMOGLOBIN 0.3 % (0.5-1.5); BG DEOXYHEMOGLOBIN 5.7 % (0.0-5.0); BG HCO3 ACT 28.9 mmol/L (22.0-26.0); BG METHEMOGLOBIN 0.3 % (0.0-1.5); BG OXYGEN SATURATION 94.3 % (92.0-98.5); BG OXYHEMOGLOBIN 93.7 % (94.0-97.0); BG PCO2 43.3 mmHg (35.0-45.0); BG PH 7.442 (7.350-7.450); BG PO2 70.3 mmHg (75.0-100.0); BG SAMPLE SITE RIGHT RADIAL; BG TOTAL HEMOGLOBIN 12.4 g/dL (12.0-18.0); BG VENT MODE ROOM AIR
[2020-01-13] MEDS: MEROPENEM 1,000 MG in SODIUM CHLORIDE 0.9% 100 ML IV SCH (17:17)
[2020-01-13] MEDS: METHYLPREDNISOLONE SOD SUCC 40 MG/ML VIAL IV SCH (17:18)
[2020-01-13] MEDS: FAMOTIDINE 20MG TABLET PO SCH (21:28)
[2020-01-13 22:34] LABS: BASOPHILS % 0.1 % (0.0-2.0); EOSINOPHILS % 0.1 % (0.0-5.0); HEMATOCRIT. 35.5 % (36.0-48.0); LYMPHOCYTES % 14.3 % (20.0-50.0); MEAN CORPUSCULAR HEMOGLOBIN 30.8 pg (28.0-32.0); MEAN CORPUSCULAR VOLUME 91.4 fL (81.0-99.0); MONOCYTES % 5.9 % (2.0-8.0); NEUTROPHILS % 79.6 % (40.0-76.0); PLATELET 171 x1000/uL (130-400); RED BLOOD CELL COUNT 3.89 mill/uL (4.2-5.4); RED CELL DISTRIBUTION WIDTH 13.9 % (11.6-14.6)
[2020-01-13 22:40] LABS: CHLORIDE 105 mEq/L (98-107)
[2020-01-14] VITALS (12 sets, daily range): BP systolic 89–131; BP diastolic 47–96
[2020-01-14] MEDS: LORAZEPAM 2MG/ML CPJ IV PRN ×2 (00:26→21:00)
[2020-01-14] MEDS: DIPHENHYDRAMINE 50MG/ML VIAL IV PRN ×2 (00:26→21:01)
[2020-01-14] MEDS: MEROPENEM 1,000 MG in SODIUM CHLORIDE 0.9% 100 ML IV SCH ×3 (01:40→17:35)
[2020-01-14] MEDS: IPRATROPIUM/ALBUTEROL 0.5-3(2.5)MG/3ML NEB HHN SCH ×4 (02:23→20:00)
[2020-01-14] MEDS: DILTIAZEM HCL 30MG TABLET PO SCH ×2 (05:11→17:34)
[2020-01-14] MEDS: METHYLPREDNISOLONE SOD SUCC 40 MG/ML VIAL IV SCH ×2 (05:12→17:32)
[2020-01-14] MEDS: ENOXAPARIN 100MG/ML SYR SUBCUT SCH ×2 (05:12→17:32)
[2020-01-14] MEDS: LEVETIRACETAM 1,000 MG in SODIUM CHLORIDE 0.9% 100 ML IV SCH ×2 (11:11→21:00)
[2020-01-14 17:01] LABS: CHLORIDE 104 mEq/L (98-107)
[2020-01-14 17:02] LABS: BASOPHILS % 0.3 % (0.0-2.0); EOSINOPHILS % 1.1 % (0.0-5.0); HEMOGLOBIN. 11.7 g/dL (12.0-16.0); LYMPHOCYTES % 35.9 % (20.0-50.0); MEAN CORPUSCULAR HEMOGLOBIN 30.6 pg (28.0-32.0); MEAN CORPUSCULAR VOLUME 91.8 fL (81.0-99.0); MEAN PLATELET VOLUME 10.6 fl (7.4-10.4); MONOCYTES % 9.8 % (2.0-8.0); NEUTROPHILS % 52.9 % (40.0-76.0); PLATELET 192 x1000/uL (130-400); RED BLOOD CELL COUNT 3.82 mill/uL (4.2-5.4); RED CELL DISTRIBUTION WIDTH 13.5 % (11.6-14.6)
[2020-01-14] MEDS: FAMOTIDINE 20MG TABLET PO SCH (21:10)
[2020-01-15] VITALS (12 sets, daily range): BP systolic 96–131; BP diastolic 61–83
[2020-01-15] MEDS: MEROPENEM 1,000 MG in SODIUM CHLORIDE 0.9% 100 ML IV SCH ×3 (00:17→17:37)
[2020-01-15] MEDS: IPRATROPIUM/ALBUTEROL 0.5-3(2.5)MG/3ML NEB HHN SCH ×4 (02:30→19:54)
[2020-01-15] MEDS: ENOXAPARIN 100MG/ML SYR SUBCUT SCH ×2 (04:04→17:37)
[2020-01-15] MEDS ORDERED: IPRATROPIUM/ALBUTEROL 0.5-3(2.5)MG/3ML NEB HHN SCH (08:00)
[2020-01-15] MEDS: LEVETIRACETAM 1,000 MG in SODIUM CHLORIDE 0.9% 100 ML IV SCH ×2 (09:13→21:53)
[2020-01-15] MEDS: METHYLPREDNISOLONE SOD SUCC 40 MG/ML VIAL IV SCH (17:37)
[2020-01-15] MEDS: DILTIAZEM HCL 30MG TABLET PO SCH (17:38)
[2020-01-15] MEDS: FAMOTIDINE 20MG TABLET PO SCH (21:53)
[2020-01-16] VITALS (12 sets, daily range): BP systolic 111–144; BP diastolic 55–85
[2020-01-16] MEDS: MEROPENEM 1,000 MG in SODIUM CHLORIDE 0.9% 100 ML IV SCH ×2 (00:48→10:06)
[2020-01-16] MEDS: IPRATROPIUM/ALBUTEROL 0.5-3(2.5)MG/3ML NEB HHN SCH ×4 (01:04→21:57)
[2020-01-16] MEDS: METHYLPREDNISOLONE SOD SUCC 40 MG/ML VIAL IV SCH ×2 (05:11→17:32)
[2020-01-16] MEDS: ENOXAPARIN 100MG/ML SYR SUBCUT SCH ×2 (05:12→17:32)
[2020-01-16] MEDS: DILTIAZEM HCL 30MG TABLET PO SCH ×2 (05:14→17:33)
[2020-01-16 07:44] LABS: BASOPHILS % 0.2 % (0.0-2.0); EOSINOPHILS % 3.7 % (0.0-5.0); HEMATOCRIT. 35.4 % (36.0-48.0); HEMOGLOBIN. 11.8 g/dL (12.0-16.0); LYMPHOCYTES % 22.1 % (20.0-50.0); MEAN CORPUSCULAR HEMOGLOBIN 30.3 pg (28.0-32.0); MEAN CORPUSCULAR VOLUME 91.2 fL (81.0-99.0); MEAN PLATELET VOLUME 9.8 fl (7.4-10.4); MONOCYTES % 8.8 % (2.0-8.0); NEUTROPHILS % 65.2 % (40.0-76.0); PLATELET 214 x1000/uL (130-400); RED BLOOD CELL COUNT 3.88 mill/uL (4.2-5.4); RED CELL DISTRIBUTION WIDTH 13.7 % (11.6-14.6)
[2020-01-16 08:14] LABS: CHLORIDE 103 mEq/L (98-107)
[2020-01-16] MEDS: LEVETIRACETAM 1,000 MG in SODIUM CHLORIDE 0.9% 100 ML IV SCH ×2 (09:08→21:07)
[2020-01-16] MEDS: PHENYTOIN 100 MG/4 ML UDC NG SCH ×2 (14:58→21:08)
[2020-01-16] MEDS: MEROPENEM-0.9% SODIUM CHLORIDE 50 ML IV SCH (17:31)
[2020-01-16] MEDS: FAMOTIDINE 20MG TABLET PO SCH (21:08)
[2020-01-16] MEDS: NYSTATIN POWDER 15GM TOP SCH (21:14)
[2020-01-17] VITALS (12 sets, daily range): BP systolic 117–147; BP diastolic 56–95
[2020-01-17] MEDS: IPRATROPIUM/ALBUTEROL 0.5-3(2.5)MG/3ML NEB HHN SCH ×4 (01:03→20:58)
[2020-01-17] MEDS: MEROPENEM-0.9% SODIUM CHLORIDE 50 ML IV SCH ×3 (01:10→17:00)
[2020-01-17] MEDS: METHYLPREDNISOLONE SOD SUCC 40 MG/ML VIAL IV SCH ×2 (05:31→18:41)
[2020-01-17] MEDS: PHENYTOIN 100 MG/4 ML UDC NG SCH ×3 (05:31→21:16)
[2020-01-17] MEDS: DILTIAZEM HCL 30MG TABLET PO SCH ×2 (05:31→18:41)
[2020-01-17] MEDS: ENOXAPARIN 100MG/ML SYR SUBCUT SCH ×2 (05:32→18:42)
[2020-01-17] MEDS: LEVETIRACETAM 1,000 MG in SODIUM CHLORIDE 0.9% 100 ML IV SCH ×2 (08:52→20:57)
[2020-01-17] MEDS: NYSTATIN POWDER 15GM TOP SCH ×3 (08:53→18:43)
[2020-01-17] MEDS: FAMOTIDINE 20MG TABLET PO SCH (20:57)
[2020-01-17] MEDS: DIPHENHYDRAMINE 50MG/ML VIAL IV PRN (21:16)
[2020-01-18] VITALS (13 sets, daily range): BP systolic 105–138; BP diastolic 50–81
[2020-01-18] MEDS: MEROPENEM-0.9% SODIUM CHLORIDE 50 ML IV SCH ×3 (00:56→18:31)
[2020-01-18] MEDS: ENOXAPARIN 100MG/ML SYR SUBCUT SCH (05:07)
[2020-01-18] MEDS: METHYLPREDNISOLONE SOD SUCC 40 MG/ML VIAL IV SCH ×2 (05:08→18:31)
[2020-01-18] MEDS: PHENYTOIN 100 MG/4 ML UDC NG SCH ×3 (05:08→21:11)
[2020-01-18] MEDS: DILTIAZEM HCL 30MG TABLET PO SCH ×2 (05:11→18:32)
[2020-01-18] MEDS: NYSTATIN POWDER 15GM TOP SCH ×3 (08:51→17:00)
[2020-01-18] MEDS: LEVETIRACETAM 1,000 MG in SODIUM CHLORIDE 0.9% 100 ML IV SCH ×2 (08:52→21:09)
[2020-01-18] MEDS: IPRATROPIUM/ALBUTEROL 0.5-3(2.5)MG/3ML NEB HHN SCH ×3 (09:06→21:22)
[2020-01-18] MEDS: FAMOTIDINE 20MG TABLET PO SCH (21:06)
[2020-01-18] MEDS: APIXABAN 5 MG TABLET PO SCH (21:06)
[2020-01-19] VITALS (7 sets, daily range): BP systolic 101–155; BP diastolic 60–86
[2020-01-19] MEDS: DIPHENHYDRAMINE 50MG/ML VIAL IV PRN (00:04)
[2020-01-19] MEDS: IPRATROPIUM/ALBUTEROL 0.5-3(2.5)MG/3ML NEB HHN SCH ×2 (02:11→08:49)
[2020-01-19] MEDS: PHENYTOIN 100 MG/4 ML UDC NG SCH (05:16)
[2020-01-19] MEDS: METHYLPREDNISOLONE SOD SUCC 40 MG/ML VIAL IV SCH (05:16)
[2020-01-19] MEDS: DILTIAZEM HCL 30MG TABLET PO SCH (05:19)
[2020-01-19] MEDS: NYSTATIN POWDER 15GM TOP SCH (09:23)
[2020-01-19] MEDS: LEVETIRACETAM 1,000 MG in SODIUM CHLORIDE 0.9% 100 ML IV SCH (09:23)
[2020-01-19] MEDS: APIXABAN 5 MG TABLET PO SCH (09:23)
[2020-01-19] MEDS ORDERED: LEVO500T2 PO (11:17)
[2020-01-19] MEDS ORDERED: PHEN100C4 MT (11:17)
[2020-01-19] MEDS ORDERED: APIX5TAB MT (11:17)
[2020-01-19] MEDS ORDERED: P20 PO (11:17)
[2020-01-19] MEDS ORDERED: DILT30TA38 MT (11:17)
[2020-01-19] MEDS ORDERED: ALBU90AE INH (11:17)
[2020-01-19] MEDS ORDERED: LEVE1000 MT (11:17)
== END 2020-01-19 17:37 | disposition home or self-care (01) | DRG 207 ==
LOC: ER 12:46 → 5WST 18:38 → ENRESERV 20:52 → ER 22:37 → CVICU 01-05 13:20 → 5EST 01-11 20:41
PROVIDERS: ADMIT Internal Medicine; ATTEND Internal Medicine
PROC: 4A10X4Z Monitoring of Central Nervous Electrical Activity, External Approach (ICD-10-PCS; 2020-01-04)
PROC: 0BH17EZ Insertion of Endotracheal Airway into Trachea, Via Natural or Artificial Opening (ICD-10-PCS; principal; 2020-01-05)
PROC: 5A1955Z Respiratory Ventilation, Greater than 96 Consecutive Hours (ICD-10-PCS; 2020-01-05)
PROC: 02HV33Z Insertion of Infusion Device into Superior Vena Cava, Percutaneous Approach (ICD-10-PCS; 2020-01-05)
PROC: B548ZZA Ultrasonography of Superior Vena Cava, Guidance (ICD-10-PCS; 2020-01-05)
DX: J96.01 Acute respiratory failure with hypoxia (principal); J69.0 Pneumonitis due to inhalation of food and vomit; I50.33 Acute on chronic diastolic (congestive) heart failure; G93.1 Anoxic brain damage, not elsewhere classified; F84.0 Autistic disorder; I82.C12 Acute embolism and thrombosis of left internal jugular vein; I82.611 Acute embolism and thrombosis of superficial veins of right upper extremity; G40.901 Epilepsy, unspecified, not intractable, with status epilepticus; I11.0 Hypertensive heart disease with heart failure; E86.0 Dehydration; E87.6 Hypokalemia; R62.50 Unspecified lack of expected normal physiological development in childhood; Z20.828 Contact with and (suspected) exposure to other viral communicable diseases; E16.2 Hypoglycemia, unspecified; R13.10 Dysphagia, unspecified; Z79.899 Other long term (current) drug therapy; Z78.1 Physical restraint status
CPT/HCPCS: 36415; 36600; 71045; 76937; 80048; 80053; 80185; 80305; 80320; 81003; 82310; 82375; 82542; 82550; 82553; 82805; 82947; 82962; 83735; 84478; 84484; 84703; 85025; 85027; 87070; 92610; 93970; 94003; 94640; 95816; 97110; 97162; 97166; 97530; 97535; 99285; C1725; J0330; J1100; J1165; J1200; J1265; J1650; J1815; J1953; J2060; J2185; J2250; J2543; J2704; J2920; J3475; J3480; J3490; J7042; J7050; J7060; G0480; U0003-CS